=== PATIENT | male | born 1990 | race American Indian/Alaskan Native ===

== ENCOUNTER 2021-11-08 13:56 | Inpatient (IN) | payer MEDICARE ==
[2021-11-08] MEDS ORDERED: ACETAMINOPHEN 500 MG TAB PO ONE (14:32)
[2021-11-08] MEDS ORDERED: ONDANSETRON 4 MG/2 ML INJ IV ONE (14:49)
[2021-11-08] MEDS ORDERED: fentaNYL 100 MCG/2 ML INJ IV ONE (15:10)
--- NOTE | 2021-11-08 15:11 | Emergency Department Report ---
HPI - General Chief Complaint: Fever Time Seen by Provider: 11/08/21 14:29 - HPI HPI: Room 23 Patient is a 31-year-old male present with chief complaint of weakness and fever. Patient states for the past 2 to 3 days he has had a subjective fever chills and weakness. Patient also admits to nausea and vomiting. Patient denies cough but admits to shortness of breath for the past 2 to 3 days. Patient states she has been vaccinated against COVID receiving 2 Pfizer vaccines last year. Patient has a history of end-stage renal disease and states he has not received dialysis in approximately 1 week. Patient states he is visiting from out of town ED Past Medical Hx - Past Medical History Hx Hypertension: Yes Hx Congestive Heart Failure: Yes Hx Diabetes: Yes Hx Renal Disease: Yes (ESRD, HD q. MWF) - Surgical History Hx Cholecystectomy: Yes Additional Surgical History: Left foot surgery, right upper extremity fistula, left groin Vas-Cath - Family History Family history: no significant - Social History Smoking Status: Never Smoker Substance Use Type: None (Denies illicit drug use) - Medications Home Medications: Home Medications Medication Instructions Recorded Confirmed Last Taken Type Blood Sugar Diagnostic [Blood 1 each PRN #1 box 05/21/15 Unknown Rx Glucose Test Strip] Blood-Glucose Meter [Blood Glucose 1 each PRN #1 kit 05/21/15 Unknown Rx Monitor] Sulfamethoxazole/Trimethoprim 1 each PO BID #20 tablet 05/21/15 Unknown Rx [Bactrim DS TAB] lisinopriL [Zestril TAB] 20 mg PO QDAY #30 tablet 05/21/15 Unknown Rx metFORMIN [Glucophage] 500 mg PO BID #60 tablet 05/21/15 Unknown Rx ED Review of Systems ROS: Stated complaint: DIALYSIS Other details as noted in HPI Constitutional: chills, fever (Subjective) Eyes: denies: eye pain ENT: denies: throat pain Respiratory: shortness of breath. denies: cough Cardiovascular: denies: chest pain Endocrine: no symptoms reported Gastrointestinal: nausea, vomiting Genitourinary: denies: testicular pain Musculoskeletal: denies: back pain Neurological: headache Physical Exam - Physical Exam Vital Signs: Vital Signs 11/08/21 14:20 Temperature 103.1 F H Pulse Rate 126 H Respiratory 24 Rate Blood Pressure 163/81 [Left] O2 Sat by Pulse 91 Oximetry Physical Exam: GENERAL: The patient is well-developed well-nourished male lying on stretcher with shaking chills. [] HEENT: Normocephalic. Atraumatic. Extraocular motions are intact. Patient has moist mucous membranes. NECK: Supple. Trachea midline. No nuchal rigidity CHEST/LUNGS: Clear to auscultation. There is no respiratory distress noted. HEART/CARDIOVASCULAR: Regular. There is tachycardia. There is no gallop rub or murmur. ABDOMEN: Abdomen is soft, nontender. Patient has normal bowel sounds. There is no abdominal distention. SKIN: There is no rash. There is no edema. There is no diaphoresis. NEURO: The patient is awake, alert, and oriented. The patient is cooperative. The patient has no focal neurologic deficits. The patient has normal speech. GCS 15 MUSCULOSKELETAL: There is no evidence of acute injury. ED Course Vital Signs 11/08/21 14:20 Temperature 103.1 F H Pulse Rate 126 H Respiratory 24 Rate Blood Pressure 163/81 [Left] O2 Sat by Pulse 91 Oximetry - Consultations Consultation #1: 11/08/21 18:28 Nephrology paged ED Medical Decision Making - Lab Data Result diagrams: 11/08/21 14:58 11/08/21 14:58 Laboratory Tests 11/08/21 11/08/21 11/08/21 14:58 14:58 14:58 WBC 6.6 RBC 3.72 Hgb 10.7 L Hct 32.4 L MCV 87 MCH 29 MCHC 33 RDW 19.6 H Plt Count 119 L Lymph % (Auto) 13.4 Hart % (Auto) 6.1 Eos % (Auto) 0.7 Baso % (Auto) 0.9 Lymph # (Auto) 0.9 L Hart # (Auto) 0.4 Eos # (Auto) 0.0 Baso # (Auto) 0.1 Seg Neutrophils % 78.9 H Seg Neutrophils # 5.2 D-Dimer VBG pH Sodium 137 Potassium 5.1 H Chloride 91.3 L Carbon Dioxide 23 Anion Gap 28 BUN 66 H Creatinine 18.0 H Estimated GFR 4 BUN/Creatinine Ratio 4 Glucose 89 Lactic Acid 2.30 H* Calcium 7.7 L Total Bilirubin 0.50 AST 19 ALT 15 Alkaline Phosphatase 86 Total Protein 7.7 Albumin 4.7 Albumin/Globulin Ratio 1.6 11/08/21 11/08/21 11/08/21 14:58 15:59 16:28 WBC RBC Hgb Hct MCV MCH MCHC RDW Plt Count Lymph % (Auto) Hart % (Auto) Eos % (Auto) Baso % (Auto) Lymph # (Auto) Hart # (Auto) Eos # (Auto) Baso # (Auto) Seg Neutrophils % Seg Neutrophils # D-Dimer 989.75 H VBG pH 7.295 L Sodium Potassium Chloride Carbon Dioxide Anion Gap BUN Creatinine Estimated GFR BUN/Creatinine Ratio Glucose Lactic Acid 1.00 Calcium Total Bilirubin AST ALT Alkaline Phosphatase Total Protein Albumin Albumin/Globulin Ratio - EKG Data -: EKG Interpreted by Me EKG shows normal: sinus rhythm Rate: tachycardia (116 bpm) - EKG Data When compared to previous EKG there are: previous EKG unavailable Interpretation: nonspecific ST-T wave remi (T wave inversions in leads aVL, V2) - Radiology Data Radiology results: report reviewed (Chest x-ray), image reviewed (Chest x-ray) interpreted by me: Chest x-ray-no definite focal infiltrates, no pneumothorax [address] [address] XRay Report Signed Patient: KELLY VARELA MR#: [id number] : 1990 Acct:[id number] Age/Sex: 31 / M ADM Date: 11/08/21 Loc: ED Attending Dr: Ordering Physician: NISREEN TUBBS MD Date of Service: 11/08/21 Procedure(s): XR chest 1V ap Accession Number(s): [id number] cc: NISREEN TUBBS MD Fluoro Time In Minutes: CHEST 1 VIEW 11/08/2021 3:07 PM INDICATION / CLINICAL INFORMATION: Fever. COMPARISON: None available. FINDINGS: SUPPORT DEVICES: None. HEART / MEDIASTINUM: Heart is upper normal size for AP portable technique. LUNGS / PLEURA: No significant pulmonary or pleural abnormality. No pneumothorax. ADDITIONAL FINDINGS: No significant additional findings. IMPRESSION: 1. No acute findings. Signer Name: Randy Page MD Signed: 11/08/2021 3:26 PM Workstation Name: [id number] Transcribed By: DT Dictated By: Niall Page MD Electronically Authenticated By: Niall Page MD Signed Date/Time: 11/08/211525 DD/ 25 TD/TT: - Differential Diagnosis Sepsis, volume overload, Critical care attestation.: If time is entered above; I have spent that time in minutes in the direct care of this critically ill patient, excluding procedure time. ED Disposition Clinical Impression: Sepsis, Uremia, Hypoxia, ESRD needing dialysis Disposition: ADMITTED INPATIENT Is pt being admited?: Yes Does the pt Need Aspirin: No Condition: Fair Time of Disposition: 18:35 (Care transferred to hospitalist (Dr. Foley))
[2021-11-08 15:20] LABS: Basophils # (Auto) 0.1 K/mm3 (0.0-0.1); Basophils % (Auto) 0.9 % (0.0-1.8); Eosinophils % (Auto) 0.7 % (0.0-4.3); Hematocrit 32.4 % (35.5-45.6); Hemoglobin 10.7 gm/dl (11.8-15.2); Lymphocytes # (Auto) 0.9 K/mm3 (1.2-5.4); Lymphocytes % (Auto) 13.4 % (13.4-35.0); Mean Corpuscular HGB Conc 33 % (32-34); Mean Corpuscular Volume 87 fl (84-94); Monocytes # (Auto) 0.4 K/mm3 (0.0-0.8); Monocytes % (Auto) 6.1 % (0.0-7.3); Platelet Count 119 K/mm3 (140-440); Red Blood Count 3.72 M/mm3 (3.65-5.03); Red Cell Distribution Width 19.6 % (13.2-15.2)
--- NOTE | 2021-11-08 15:30 | XRay Report ---
CHEST 1 VIEW 11/08/2021 3:07 PM INDICATION / CLINICAL INFORMATION: Fever. COMPARISON: None available. FINDINGS: SUPPORT DEVICES: None. HEART / MEDIASTINUM: Heart is upper normal size for AP portable technique. LUNGS / PLEURA: No significant pulmonary or pleural abnormality. No pneumothorax. ADDITIONAL FINDINGS: No significant additional findings. IMPRESSION: 1. No acute findings. Signer Name: Randy Page MD Signed: 11/08/2021 3:26 PM Workstation Name: [id number]
[2021-11-08 15:32] LABS: Albumin 4.7 g/dL (3.9-5); Calcium 7.7 mg/dL (8.4-10.2)
[2021-11-08] MEDS ORDERED: PIPERACIL-TAZO 2.25 GM/50 ML 2.25 GM/50 ML BAG IV ONE (16:56)
--- NOTE | 2021-11-08 17:53 | Nuclear Medicine Report ---
NUCLEAR MEDICINE PERFUSION LUNG SCAN INDICATION / CLINICAL INFORMATION: Shortness of breath. TECHNIQUE: 5 mCi of Tc-99m MAA were given by IV. COMPARISON: Chest radiograph dated 11/08/21. FINDINGS: PERFUSION: No significant perfusion defects. ADDITIONAL FINDINGS: None. IMPRESSION: 1. Low probability for pulmonary embolism. Signer Name: Randy Page MD Signed: 11/08/2021 5:48 PM Workstation Name: [id number]
[2021-11-08] MEDS ORDERED: IBUPROFEN 800 MG TAB PO ONE (18:27)
--- NOTE | 2021-11-08 20:29 | History and Physical Report ---
History of Present Illness Date of examination: 11/08/21 Date of admission: 11/08/21 18:36 Chief complaint: Fever for 2 to 3 days History of present illness: 31-year-old female with history of hypertension, T2DM, and end-stage renal disease comes in for fever chills sweats 2 to 3 days duration. Associated with nausea and vomiting. No cough. Some shortness of breath present for the last 3 days. Orthopnea present. Patient was vaccinated with 2 doses of Pfizer vaccine for COVID. No dysuria. No exacerbating or relieving factors. Compliant with hemodialysis. - Past Medical History --Hypertension: Yes --Congestive Heart Failure: Yes --Diabetes: Yes --Renal Disease: Yes (ESRD, HD q. MWF) - Surgical History --Cholecystectomy: Yes --Additional Surgical History: Left foot surgery, right upper extremity fistula, left groin Vas-Cath - Family History --Family history: no significant - Social History --Smoking Status: Never Smoker --Substance Use Type: None (Denies illicit drug use) - Medications --Home Medications: Home Medications Medication Instructions Recorded Confirmed Last Taken Type Blood Sugar Diagnostic [Blood 1 each PRN #1 box 05/21/15 Unknown Rx Glucose Test Strip] Blood-Glucose Meter [Blood Glucose 1 each PRN #1 kit 05/21/15 Unknown Rx Monitor] Sulfamethoxazole/Trimethoprim 1 each PO BID #20 tablet 05/21/15 Unknown Rx [Bactrim DS TAB] lisinopriL [Zestril TAB] 20 mg PO QDAY #30 tablet 05/21/15 Unknown Rx metFORMIN [Glucophage] 500 mg PO BID #60 tablet 05/21/15 Unknown Rx Review of Systems ROS: Stated complaint: DIALYSIS Other details as noted in HPI Constitutional: chills, fever (Subjective) Eyes: denies: eye pain ENT: denies: throat pain Respiratory: shortness of breath. denies: cough Cardiovascular: denies: chest pain Endocrine: no symptoms reported Gastrointestinal: nausea, vomiting Genitourinary: denies: testicular pain Musculoskeletal: denies: back pain Neurological: headache Medications and Allergies Allergies Allergy/AdvReac Type Severity Reaction Status Date / Time No Known Allergies Allergy Unverified 05/21/15 08:18 Home Medications Medication Instructions Recorded Confirmed Last Taken Type Blood Sugar Diagnostic [Blood 1 each PRN #1 box 05/21/15 Unknown Rx Glucose Test Strip] Blood-Glucose Meter [Blood Glucose 1 each MC PRN #1 kit 05/21/15 Unknown Rx Monitor] Sulfamethoxazole/Trimethoprim 1 each PO BID #20 tablet 05/21/15 Unknown Rx [Bactrim DS TAB] lisinopriL [Zestril TAB] 20 mg PO QDAY #30 tablet 05/21/15 Unknown Rx metFORMIN [Glucophage] 500 mg PO BID #60 tablet 05/21/15 Unknown Rx Active Meds: Active Medications Acetaminophen (Acetaminophen 325 Mg Tab) 650 mg PO Q4H PRN PRN Reason: Pain MILD(1-3)/Fever >100.5/RAMIREZ Morphine Sulfate (Morphine 2 Mg/1 Ml Inj) 2 mg IV Q4H PRN PRN Reason: Pain, Moderate (4-6) Ondansetron HCl (Ondansetron 4 Mg/2 Ml Inj) 4 mg IV Q8H PRN PRN Reason: Nausea And Vomiting Sodium Chloride (Sodium Chloride 0.9% 10 Ml Flush Syringe) 10 ml IV BID ELLEN Sodium Chloride (Sodium Chloride 0.9% 10 Ml Flush Syringe) 10 ml IV PRN PRN PRN Reason: LINE FLUSH Exam - Constitutional Vitals: Temp Pulse Resp BP Pulse Ox 98.4 F 93 H 21 104/51 99 11/08/21 19:26 11/08/21 19:26 11/08/21 19:36 11/08/21 19:26 11/08/21 19:36 General appearance: Present: no acute distress, well-nourished - EENT Eyes: Present: PERRL ENT: hearing intact, clear oral mucosa - Neck Neck: Present: supple, normal ROM - Respiratory Respiratory effort: normal Respiratory: bilateral: CTA - Cardiovascular Heart rate: 78 Rhythm: regular Heart Sounds: Present: S1 & S2. Absent: rub, click - Extremities Extremities: pulses symmetrical, No edema Peripheral Pulses: within normal limits - Abdominal General gastrointestinal: Present: soft, non-tender, non-distended, normal bowel sounds Male genitourinary: Present: normal - Integumentary Integumentary: Present: clear, warm, dry - Musculoskeletal Musculoskeletal: gait normal, strength equal bilaterally - Psychiatric Psychiatric: appropriate mood/affect, intact judgment & insight - Neurologic Neurologic: CNII-XII intact, moves all extremities - Allied Health Allied health notes reviewed: nursing, case management Results - Labs CBC & Chem 7: 11/08/21 14:58 11/08/21 14:58 Labs: Laboratory Last Values WBC 6.6 K/mm3 (4.5-11.0) 11/08/21 14:58 RBC 3.72 M/mm3 (3.65-5.03) 11/08/21 14:58 Hgb 10.7 gm/dl (11.8-15.2) L 11/08/21 14:58 Hct 32.4 % (35.5-45.6) L 11/08/21 14:58 MCV 87 fl (84-94) 11/08/21 14:58 MCH 29 pg (28-32) 11/08/21 14:58 MCHC 33 % (32-34) 11/08/21 14:58 RDW 19.6 % (13.2-15.2) H 11/08/21 14:58 Plt Count 119 K/mm3 (140-440) L 11/08/21 14:58 Lymph % (Auto) 13.4 % (13.4-35.0) 11/08/21 14:58 [place] % (Auto) 6.1 % (0.0-7.3) 11/08/21 14:58 Eos % (Auto) 0.7 % (0.0-4.3) 11/08/21 14:58 Baso % (Auto) 0.9 % (0.0-1.8) 11/08/21 14:58 Lymph # (Auto) 0.9 K/mm3 (1.2-5.4) L 11/08/21 14:58 [place] # (Auto) 0.4 K/mm3 (0.0-0.8) 11/08/21 14:58 Eos # (Auto) 0.0 K/mm3 (0.0-0.4) 11/08/21 14:58 Baso # (Auto) 0.1 K/mm3 (0.0-0.1) 11/08/21 14:58 Seg Neutrophils % 78.9 % (40.0-70.0) H 11/08/21 14:58 Seg Neutrophils # 5.2 K/mm3 (1.8-7.7) 11/08/21 14:58 D-Dimer 989.75 ng/mlDDU (0-234) H 11/08/21 15:59 VBG pH 7.295 (7.320-7.420) L 11/08/21 14:58 Sodium 137 mmol/L (137-145) 11/08/21 14:58 Potassium 5.1 mmol/L (3.6-5.0) H 11/08/21 14:58 Chloride 91.3 mmol/L (98-107) L 11/08/21 14:58 Carbon Dioxide 23 mmol/L (22-30) 11/08/21 14:58 Anion Gap 28 mmol/L 11/08/21 14:58 BUN 66 mg/dL (9-20) H 11/08/21 14:58 Creatinine 18.0 mg/dL (0.8-1.3) H 11/08/21 14:58 Estimated GFR 4 ml/min 11/08/21 14:58 BUN/Creatinine Ratio 4 % 11/08/21 14:58 Glucose 89 mg/dL (75-100) 11/08/21 14:58 Lactic Acid 1.00 mmol/L (0.7-2.0) 11/08/21 16:28 Calcium 7.7 mg/dL (8.4-10.2) L 11/08/21 14:58 Total Bilirubin 0.50 mg/dL (0.1-1.2) 11/08/21 14:58 AST 19 units/L (5-40) 11/08/21 14:58 ALT 15 units/L (7-56) 11/08/21 14:58 Alkaline Phosphatase 86 units/L (35-129) 11/08/21 14:58 Total Protein 7.7 g/dL (6.3-8.2) 11/08/21 14:58 Albumin 4.7 g/dL (3.9-5) 11/08/21 14:58 Albumin/Globulin Ratio 1.6 % 11/08/21 14:58 Short CBC 11/08/21 Range/Units 14:58 WBC 6.6 (4.5-11.0) K/mm3 Hgb 10.7 L (11.8-15.2) gm/dl Hct 32.4 L (35.5-45.6) % Plt Count 119 L (140-440) K/mm3 BMP 11/08/21 14:58 Sodium 137 Potassium 5.1 H Chloride 91.3 L Carbon Dioxide 23 BUN 66 H Creatinine 18.0 H Glucose 89 Calcium 7.7 L Liver Function 11/08/21 Range/Units 14:58 Total Bilirubin 0.50 (0.1-1.2) mg/dL AST 19 (5-40) units/L ALT 15 (7-56) units/L Alkaline Phosphatase 86 (35-129) units/L Albumin 4.7 (3.9-5) g/dL - Imaging and Cardiology Chest x-ray: report reviewed (No acute findings) Imaging and Cardiology: Pulmonary perfusion scan 9 Low probability for pulmonary embolism Assessment and Plan Advance Directives: Yes (Full code) VTE prophylaxis?: Chemical Plan of care discussed with patient/family: Yes - Patient Problems (1) SIRS (systemic inflammatory response syndrome) Current Visit: Yes Status: Acute Plan to address problem: Patient has a normal white count but high D-dimers In favor of SIRS IV Rocephin and vancomycin initiated (2) Bacteremia Current Visit: Yes Status: Acute Plan to address problem: Persistent high fever of 103.1 for the last 2 to 3 days Bacteremia IV Rocephin and IV vancomycin initiated ID consult requested (3) ESRD needing dialysis Current Visit: Yes Status: Chronic Plan to address problem: Continue dialysis as per schedule Consult nephrology (4) T2DM (type 2 diabetes mellitus) Current Visit: Yes Status: Chronic Plan to address problem: Check hemoglobin A1c Coverage for now (5) Hyperkalemia Current Visit: Yes Status: Acute Plan to address problem: Mild loss treated. Repeat potassium level in the next 6 to 12 hours (6) Hypertension Current Visit: Yes Status: Chronic Qualifiers: Hypertension type: primary hypertension Qualified Code(s): I10 - Essential (primary) hypertension Plan to address problem: Continue antihypertensives (7) DVT prophylaxis Current Visit: Yes Status: Acute Plan to address problem: On heparin GI prophylaxis (8) Advance care planning Current Visit: Yes Status: Acute Plan to address problem: Disease education conducted, care plan discussed, diagnosis discussed and prognosis discussed. Patient is full code. Patient acknowledged understanding with care plan. +30 minutes.
[2021-11-08] MEDS ORDERED: ONDANSETRON 4 MG/2 ML INJ IV PRN (21:37)
[2021-11-08] MEDS ORDERED: ACETAMINOPHEN 325 MG TAB PO PRN (21:37)
[2021-11-08] MEDS ORDERED: METOCLOPRAMIDE 10 MG/2 ML INJ IV PRN (21:37)
[2021-11-08] MEDS ORDERED: SODIUM CHLORIDE 0.9% 100 ML IV PRN (22:34)
[2021-11-08] MEDS: MORPHINE 2 MG/1 ML INJ IV PRN (23:42)
[2021-11-08] MEDS: cefTRIAXone/NS 1 GM/50 ML 1 GM/50 ML BAG IV SCH (23:43)
[2021-11-09] MEDS: ONDANSETRON 4 MG/2 ML INJ IV PRN ×2 (03:54→20:30)
[2021-11-09] MEDS: MORPHINE 2 MG/1 ML INJ IV PRN ×3 (03:54→20:30)
[2021-11-09] MEDS ORDERED: VANCOMYCIN PHARMACY TO DOSE IV SCH (07:00)
[2021-11-09 07:58] LABS: Hemoglobin 9.6 gm/dl (11.8-15.2); Mean Corpuscular HGB Conc 33 % (32-34); Mean Corpuscular Volume 88 fl (84-94); Platelet Count 110 K/mm3 (140-440); Red Cell Distribution Width 19.5 % (13.2-15.2)
[2021-11-09] MEDS ORDERED: VANCOMYCIN 2,000 MG in SODIUM CHLORIDE 0.9% 500 ML 500 ML IV ONE (08:00)
--- NOTE | 2021-11-09 08:24 | Consultation ---
History of Present Illness - Reason for Consult Consult date: 11/09/21 end stage renal disease Requesting physician: ABHISHEK CANNON - History of Present Illness 82-year-old male who is not known to me with history of diabetes mellitus, hypertension and end-stage renal disease. Patient has not received dialysis in 1 week. He presents on account of fever, weakness, nausea vomiting. There is no shortness of breath over the last 2 to 3 days. He denies any cough. Patient currently dialyzes through a right upper extremity AV fistula which has been stopped 4 times. He has a left femoral permacath which is still intact. Plan was to remove the permacath after doing dialysis sticking the fistula 6 times. Past History Past Medical History: diabetes, ESRD, hypertension Past Surgical History: Other (AV fistula placement, tunneled dialysis catheter placements) Social history: smoking. denies: alcohol abuse, prescription drug abuse, IV drug use Family history: diabetes, hypertension, stroke Medications and Allergies Allergies Allergy/AdvReac Type Severity Reaction Status Date / Time No Known Allergies Allergy Unverified 05/21/15 08:18 Home Medications Medication Instructions Recorded Confirmed Last Taken Type Blood Sugar Diagnostic [Blood 1 each PRN #1 box 05/21/15 11/09/21 Unknown Rx Glucose Test Strip] Blood-Glucose Meter [Blood Glucose 1 each PRN #1 kit 05/21/15 11/09/21 Unknown Rx Monitor] Sulfamethoxazole/Trimethoprim 1 each PO BID #20 tablet 05/21/15 11/09/21 Unknown Rx [Bactrim DS TAB] lisinopriL [Zestril TAB] 20 mg PO QDAY #30 tablet 05/21/15 11/09/21 Unknown Rx metFORMIN [Glucophage] 500 mg PO BID #60 tablet 05/21/15 11/09/21 Unknown Rx Active Meds: Active Medications Acetaminophen (Acetaminophen 325 Mg Tab) 650 mg PO Q4H PRN PRN Reason: Pain MILD(1-3)/Fever >100.5/RAMIREZ Ceftriaxone Sodium (Rocephin/Ns 1 Gm/50 Ml) 1 gm in 50 mls @ 100 mls/hr IV Q24HR ELLEN; Protocol Last Infusion: 11/09/21 03:39 Dose: Infused Sodium Chloride (Nacl 0.9%) 100 mls @ 999 mls/hr IV SHELBI PRN PRN Reason: Hypotension Vancomycin HCl 2,000 mg/ (Sodium Chloride) 540 mls @ 250 mls/hr IV ONCE ONE Stop: 11/09/21 10:09 Insulin Human Lispro (Insulin Lispro 100 Unit/Ml) 0 unit SUB-Q ACHS ELLEN; Protocol Metoclopramide HCl (Metoclopramide 10 Mg/2 Ml Inj) 5 mg IV Q6H PRN PRN Reason: Nausea And Vomiting Morphine Sulfate (Morphine 2 Mg/1 Ml Inj) 2 mg IV Q4H PRN PRN Reason: Pain, Moderate (4-6) Last Admin: 11/09/21 03:54 Dose: 2 mg Ondansetron HCl (Ondansetron 4 Mg/2 Ml Inj) 4 mg IV Q8H PRN PRN Reason: Nausea And Vomiting Last Admin: 11/09/21 03:54 Dose: 4 mg Sodium Chloride (Sodium Chloride 0.9% 10 Ml Flush Syringe) 10 ml IV BID ELLEN Last Admin: 11/08/21 23:46 Dose: 10 ml Sodium Chloride (Sodium Chloride 0.9% 10 Ml Flush Syringe) 10 ml IV PRN PRN PRN Reason: LINE FLUSH Review of Systems All systems: negative (As noted in history of present illness) Exam - Vital Signs Vital signs: Vital Signs BP 113/64 11/08/21 12:23 - Physical Exam Narrative exam: Young -[place] male lying in bed in no acute distress HEENT: NCAT, pink conjunctiva, anicteric sclera Neck: Supple, no venous distention CVS: S1S2 RRR with no murmur, rub or gallop Chest: Clear to auscultation but breath sounds diminished in lower zones Abdomen: Protuberant, soft, nontender, no organomegaly, bowel sounds are present Extremities: No edema, dressings both feet Right upper extremity AV fistula Skin warm and dry Genitourinary deferred Neuro: Awake, alert no focal deficits Results - Lab Results 11/10/21 07:43 11/10/21 07:43 Most recent lab results Calcium 7.7 mg/dL (8.4-10.2) L 11/08/21 14:58 Assessment and Plan - Patient Problems (1) Type 2 diabetes mellitus with diabetic chronic kidney disease Current Visit: Yes Status: Acute Plan to address problem: Blood sugar management by primary attending. (2) Anemia in end-stage renal disease Current Visit: Yes Status: Acute Plan to address problem: Give erythropoietin on dialysis. Follow-up hemoglobin (3) Hypertensive chronic kidney disease with stage 5 chronic kidney disease or end stage renal disease Current Visit: Yes Status: Acute Plan to address problem: Follow-up blood pressure on current medications (4) Bacteremia Current Visit: Yes Status: Acute Plan to address problem: Follow-up cultures. Continue empiric antibiotics. Will need permacath removed if patient has bacteremia. Hopefully AV fistula is mature and can be used (5) Hyperkalemia Current Visit: Yes Status: Acute Plan to address problem: Dialyze on a low potassium bath and follow-up potassium. (6) SIRS (systemic inflammatory response syndrome) Current Visit: Yes Status: Acute Plan to address problem: Cultures obtained. Continue empiric antibiotics and follow-up culture and sensitivity (7) ESRD needing dialysis Current Visit: Yes Status: Chronic Plan to address problem: Hemodialysis today. Reevaluate the need for dialysis tomorrow
--- NOTE | 2021-11-09 08:25 | Progress Note ---
Assessment and Plan Assessment and plan: History of present illness: 31-year-old female with history of hypertension, T2DM, and end-stage renal disease comes in for fever chills sweats 2 to 3 days duration. Associated with nausea and vomiting. No cough. Some shortness of breath present for the last 3 days. Orthopnea present. Patient was vaccinated with 2 doses of Pfizer vaccine for COVID. No dysuria. No exacerbating or relieving factors. Compliant with hemodialysis. Hospital Course: 11/09: Patient appears lethargic. Agree with MRI bilateral feet ordered by ID to r/o infectious source (osteo). abx changes noted. Coronavirus pcr negative. Assessment and Plan: #Possible Sepsis POA #BL foot wounds - unclear source (potentially feet), fevers, chills, N/V - LA: 2.3, tachcardic, febrile - CXR: negative for obvious PNA - covid pcr negative. - blood cultures x 2. - empiric abx: IV cefepime and vancomycin - MRI of bilateral feet. - ID consultation #ESRD needing hemodialysis #Hyperkalemia #Metabolic Acidosis #Anemia of CKD - nephrology consultation for HD - trend serial bmp #Type 2 Diabetes with Hyperglycemia - hemoglobin A1c: Pending - home regimen: Unknown - current regimen: Moderate SSI - blood glucose goal 140-180 while inpatient - continue to monitor #Essential hypertension - hold home lisinopril due to hyperkalemia - started on norvasc 10 mg po daily #Advance care planning Disease education conducted, care plan discussed, diagnoses discussed, prognosis discussed, patient is full code, patient acknowledges understanding and agree with care plan, +30 minutes. History Interval history: Seen and evaluated bedside. Patient complaining of severe muscle aches and malaise. Did not appear to be in distress otherwise. Bilateral foot wounds noted with overlying dressing. Patient states that he follows with podiatry outpatient and has been doing so for approximately 1 month now. He denies any antibiotic therapy prior to admission Hospitalist Physical - Physical exam Narrative exam: Physical Exam: VITAL SIGNS: Reviewed. GENERAL: The patient appears normally developed, Vital signs as documented. HEAD: No signs of head trauma. EYES: Pupils are equal. Extraocular motions intact. EARS: Hearing grossly intact. MOUTH: Oropharynx is normal. NECK: No adenopathy, no JVD. CHEST: Chest with clear breath sounds bilaterally. No wheezes, rales, or rhonchi. CARDIAC: Regular rate and rhythm. S1 and S2, without murmurs, gallops, or rubs. VASCULAR: No Edema. Peripheral pulses normal and equal in all extremities. ABDOMEN: Soft, non tender and non distended. No rebound or guarding, and no masses palpated. Bowel Sounds normal. MUSCULOSKELETAL: Good range of motion of all major joints. Extremities without clubbing, cyanosis or edema. NEUROLOGIC EXAM: Alert and oriented x 4. no focal sensory or strength deficits. PSYCHIATRIC: Mood normal. SKIN: detail exam as documented in skin assessment - Constitutional Vitals: Temp Pulse Resp BP Pulse Ox 100.3 F H 74 11 L 161/114 99 11/09/21 05:06 11/09/21 05:40 11/09/21 05:40 11/09/21 05:40 11/09/21 07:47 General appearance: Present: no acute distress, well-nourished Results - Labs CBC & Chem 7: 11/09/21 07:30 11/09/21 07:30 Labs: Laboratory Last Values WBC 7.4 K/mm3 (4.5-11.0) 11/09/21 07:30 RBC 3.30 M/mm3 (3.65-5.03) L 11/09/21 07:30 Hgb 9.6 gm/dl (11.8-15.2) L 11/09/21 07:30 Hct 29.0 % (35.5-45.6) L 11/09/21 07:30 MCV 88 fl (84-94) 11/09/21 07:30 MCH 29 pg (28-32) 11/09/21 07:30 MCHC 33 % (32-34) 11/09/21 07:30 RDW 19.5 % (13.2-15.2) H 11/09/21 07:30 Plt Count 110 K/mm3 (140-440) L 11/09/21 07:30 Lymph % (Auto) 13.4 % (13.4-35.0) 11/08/21 14:58 Bea[place]gard % (Auto) 6.1 % (0.0-7.3) 11/08/21 14:58 Eos % (Auto) 0.7 % (0.0-4.3) 11/08/21 14:58 Baso % (Auto) 0.9 % (0.0-1.8) 11/08/21 14:58 Lymph # (Auto) 0.9 K/mm3 (1.2-5.4) L 11/08/21 14:58 Bea[place]gard # (Auto) 0.4 K/mm3 (0.0-0.8) 11/08/21 14:58 Eos # (Auto) 0.0 K/mm3 (0.0-0.4) 11/08/21 14:58 Baso # (Auto) 0.1 K/mm3 (0.0-0.1) 11/08/21 14:58 Seg Neutrophils % 78.9 % (40.0-70.0) H 11/08/21 14:58 Seg Neutrophils # 5.2 K/mm3 (1.8-7.7) 11/08/21 14:58 D-Dimer 989.75 ng/mlDDU (0-234) H 11/08/21 15:59 VBG pH 7.295 (7.320-7.420) L 11/08/21 14:58 Sodium 137 mmol/L (137-145) 11/08/21 14:58 Potassium 5.1 mmol/L (3.6-5.0) H 11/08/21 14:58 Chloride 91.3 mmol/L (98-107) L 11/08/21 14:58 Carbon Dioxide 23 mmol/L (22-30) 11/08/21 14:58 Anion Gap 28 mmol/L 11/08/21 14:58 BUN 66 mg/dL (9-20) H 11/08/21 14:58 Creatinine 18.0 mg/dL (0.8-1.3) H 11/08/21 14:58 Estimated GFR 4 ml/min 11/08/21 14:58 BUN/Creatinine Ratio 4 % 11/08/21 14:58 Glucose 89 mg/dL (75-100) 11/08/21 14:58 POC Glucose 91 mg/dL (70-105) 11/08/21 21:46 Lactic Acid 0.80 mmol/L (0.7-2.0) 11/09/21 07:30 Calcium 7.7 mg/dL (8.4-10.2) L 11/08/21 14:58 Total Bilirubin 0.50 mg/dL (0.1-1.2) 11/08/21 14:58 AST 19 units/L (5-40) 11/08/21 14:58 ALT 15 units/L (7-56) 11/08/21 14:58 Alkaline Phosphatase 86 units/L (35-129) 11/08/21 14:58 Total Protein 7.7 g/dL (6.3-8.2) 11/08/21 14:58 Albumin 4.7 g/dL (3.9-5) 11/08/21 14:58 Albumin/Globulin Ratio 1.6 % 11/08/21 14:58 Microbiology: Microbiology 11/08/21 15:28 Peripheral/Venous Blood Culture - Preliminary Culture in Progress 11/08/21 15:28 Peripheral/Venous Blood Culture - Preliminary Culture in Progress Vargas/IV: Voiding Method Urinal Active Medications - Current Medications Current Medications: Generic Name Dose Route Start Last Admin Trade Name Freq PRN Reason Stop Dose Admin Acetaminophen 650 mg 11/08/21 18:36 Acetaminophen 325 Mg Tab PO Q4H PRN Pain MILD(1-3)/Fever >100.5/RAMIREZ Ceftriaxone Sodium 1 gm in 50 mls @ 100 mls/hr 11/08/21 23:00 11/09/21 03:39 Rocephin/Ns 1 Gm/50 Ml IV Infused Q24HR [facility] Infusion Protocol Sodium Chloride 100 mls @ 999 mls/hr 11/08/21 22:34 Nacl 0.9% IV SHELBI PRN Hypotension Vancomycin HCl 2,000 mg/ 540 mls @ 250 mls/hr 11/09/21 08:00 Sodium Chloride IV 11/09/21 10:09 ONCE ONE Insulin Human Lispro 0 unit 11/09/21 07:30 Insulin Lispro 100 Unit/Ml SUB-Q ACHS [facility] Protocol Metoclopramide HCl 5 mg 11/08/21 21:37 Metoclopramide 10 Mg/2 Ml Inj IV Q6H PRN Nausea And Vomiting Morphine Sulfate 2 mg 11/08/21 18:36 11/09/21 03:54 Morphine 2 Mg/1 Ml Inj IV 2 mg Q4H PRN Administration Pain, Moderate (4-6) Ondansetron HCl 4 mg 11/08/21 18:36 11/09/21 03:54 Ondansetron 4 Mg/2 Ml Inj IV 4 mg Q8H PRN Administration Nausea And Vomiting Sodium Chloride 10 ml 11/08/21 22:00 11/08/21 23:46 Sodium Chloride 0.9% 10 Ml Flush Syringe IV 10 ml BID ELLEN Administration Sodium Chloride 10 ml 11/08/21 18:36 Sodium Chloride 0.9% 10 Ml Flush Syringe IV PRN PRN LINE FLUSH
[2021-11-09 08:28] LABS: Calcium 6.9 mg/dL (8.4-10.2)
[2021-11-09] MEDS ORDERED: hydrALAZINE 20 MG/1 ML INJ IV PRN (08:32)
--- NOTE | 2021-11-09 09:31 | Electrocardiograph Report ---
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
[2021-11-09] MEDS: INSULIN LISPRO 100 UNIT/ML SUB-Q SCH ×4 (09:33→22:41)
[2021-11-09 09:37] LABS: Anisocytosis 1+; Basophils % (Manual) 0 % (0.0-1.8); Eosinophils % (Manual) 0 % (0.0-4.3); Large Platelets Rare; Platelet Estimate Consistent w Auto; Total Cells Counted 100
[2021-11-09] MEDS: amLODIPine 10 MG TAB PO SCH (09:55)
[2021-11-09] MEDS: cefTRIAXone/NS 1 GM/50 ML 1 GM/50 ML BAG IV SCH (09:55)
--- NOTE | 2021-11-09 10:13 | Consultation ---
History of Present Illness - Reason for Consult Consult date: 11/09/21 fever Requesting physician: GRICELDA LÓPEZ - History of Present Illness The patient is a 31-year-old male with diabetes mellitus type 2, hypertension, ESRD on HD was admitted with fever and chills going on for 2 to 3 days. Also having some nausea and vomiting. Upon evaluation in the ED, T-max of 103.1 F. Labs showed normal WBC, platelets 119, D-dimer 989, creatinine was high at 18.0, mild lactate elevation at 2.3. Chest x-ray did not reveal any evidence of pneumonia. ID was consulted due to fever. Review of Systems: General: fever HEENT: no new visual disturbance Respiratory: No cough, sputum, hemoptysis or shortness of breath Cardiovascular: No chest pain, syncope Gastrointestinal: No nausea, vomiting or diarrhea Genitourinary: No dysuria or hematuria Musculoskeletal: No new or worsening neck pain or back pain Neurologic: No headaches, seizures Hematologic: No easy bruising or bleeding Endocrine: No night sweats or acute weight loss Skin: negative for rash, jaundice Psychiatric: No suicidal or homicidal ideation Past History Past Medical History: diabetes, ESRD, hypertension Past Surgical History: Other (AV fistula placement, tunneled dialysis catheter placements) Social history: smoking. denies: alcohol abuse, prescription drug abuse, IV drug use Family history: diabetes, hypertension, stroke Medications and Allergies Allergies Allergy/AdvReac Type Severity Reaction Status Date / Time No Known Allergies Allergy Unverified 05/21/15 08:18 Home Medications Medication Instructions Recorded Confirmed Last Taken Type Blood Sugar Diagnostic [Blood 1 each PRN #1 box 05/21/15 Unknown Rx Glucose Test Strip] Blood-Glucose Meter [Blood Glucose 1 each PRN #1 kit 05/21/15 Unknown Rx Monitor] Sulfamethoxazole/Trimethoprim 1 each PO BID #20 tablet 05/21/15 Unknown Rx [Bactrim DS TAB] lisinopriL [Zestril TAB] 20 mg PO QDAY #30 tablet 05/21/15 Unknown Rx metFORMIN [Glucophage] 500 mg PO BID #60 tablet 05/21/15 Unknown Rx Active Meds: Active Medications Acetaminophen (Acetaminophen 325 Mg Tab) 650 mg PO Q4H PRN PRN Reason: Pain MILD(1-3)/Fever >100.5/RAMIREZ Amlodipine Besylate (Amlodipine 10 Mg Tab) 10 mg PO QDAY [facility] Last Admin: 11/09/21 09:55 Dose: Not Given Hydralazine HCl (Hydralazine 20 Mg/1 Ml Inj) 10 mg IV Q4H PRN PRN Reason: sbp> 160 Sodium Chloride (Nacl 0.9%) 100 mls @ 999 mls/hr IV SHELBI PRN PRN Reason: Hypotension Insulin Human Lispro (Insulin Lispro 100 Unit/Ml) 0 unit SUB-Q ACHS [facility]; Protocol Last Admin: 11/09/21 09:33 Dose: Not Given Metoclopramide HCl (Metoclopramide 10 Mg/2 Ml Inj) 5 mg IV Q6H PRN PRN Reason: Nausea And Vomiting Morphine Sulfate (Morphine 2 Mg/1 Ml Inj) 2 mg IV Q4H PRN PRN Reason: Pain, Moderate (4-6) Last Admin: 11/09/21 03:54 Dose: 2 mg Ondansetron HCl (Ondansetron 4 Mg/2 Ml Inj) 4 mg IV Q8H PRN PRN Reason: Nausea And Vomiting Last Admin: 11/09/21 03:54 Dose: 4 mg Sodium Chloride (Sodium Chloride 0.9% 10 Ml Flush Syringe) 10 ml IV BID [facility] Last Admin: 11/09/21 09:38 Dose: 10 ml Sodium Chloride (Sodium Chloride 0.9% 10 Ml Flush Syringe) 10 ml IV PRN PRN PRN Reason: LINE FLUSH Physical Examination - Physical Exam Narrative exam: Physical Exam: Constitutional: Alert, cooperative. No acute distress Head, Ears, Nose: Normocephalic, atraumatic. External ears, nose normal Eyes: Conjunctivae/corneas clear. No icterus. No ptosis. Neck: Supple, no meningeal signs Cardiovascular: S1, S2 + Respiratory: Good air entry, clear to auscultation bilaterally GI: Soft, non-tender; bowel sounds normal. No peritoneal signs Musculoskeletal: b/l feet in dressings. L groin HD cath + Skin: No rash or abscess Hem/Lymphatic: No palpable cervical or supraclavicular nodes. No lymphangitis Psych: Mood ok. Affect normal Neurological: Awake, alert, oriented. No gross abnormality - Constitutional Vitals: Vital Signs Temp Pulse Resp BP Pulse Ox 97.6 F 104 H 20 97/42 94 11/09/21 09:54 11/09/21 09:54 11/09/21 09:54 11/09/21 09:54 11/09/21 09:54 Temperature -Last 24 Hours Temperature 97.6 F Temperature 100.3 F Temperature 98.2 F Temperature 98.4 F Temperature 101.0 F Temperature 103.1 F Results - Labs CBC & Chem 7: 11/09/21 07:30 11/09/21 07:30 Labs: Abnormal lab results 11/08/21 11/08/21 11/08/21 Range/Units 14:58 14:58 14:58 RBC (3.65-5.03) M/mm3 Hgb 10.7 L (11.8-15.2) gm/dl Hct 32.4 L (35.5-45.6) % RDW 19.6 H (13.2-15.2) % Plt Count 119 L (140-440) K/mm3 Lymph # (Auto) 0.9 L (1.2-5.4) K/mm3 Seg Neutrophils % 78.9 H (40.0-70.0) % Seg Neuts % (Manual) (40.0-70.0) % Lymphocytes % (Manual) (13.4-35.0) % Monocytes % (Manual) (0.0-7.3) % Lymphocytes # (Manual) (1.2-5.4) K/mm3 D-Dimer (0-234) ng/mlDDU VBG pH (7.320-7.420) Sodium (137-145) mmol/L Potassium 5.1 H (3.6-5.0) mmol/L Chloride 91.3 L (98-107) mmol/L BUN 66 H (9-20) mg/dL Creatinine 18.0 H (0.8-1.3) mg/dL Lactic Acid 2.30 H* (0.7-2.0) mmol/L Calcium 7.7 L (8.4-10.2) mg/dL 11/08/21 11/08/21 11/09/21 Range/Units 14:58 15:59 07:30 RBC 3.30 L (3.65-5.03) M/mm3 Hgb 9.6 L (11.8-15.2) gm/dl Hct 29.0 L (35.5-45.6) % RDW 19.5 H (13.2-15.2) % Plt Count 110 L (140-440) K/mm3 Lymph # (Auto) (1.2-5.4) K/mm3 Seg Neutrophils % (40.0-70.0) % Seg Neuts % (Manual) 80.0 H (40.0-70.0) % Lymphocytes % (Manual) 11.0 L (13.4-35.0) % Monocytes % (Manual) 9.0 H (0.0-7.3) % Lymphocytes # (Manual) 0.8 L (1.2-5.4) K/mm3 D-Dimer 989.75 H (0-234) ng/mlDDU VBG pH 7.295 L (7.320-7.420) Sodium (137-145) mmol/L Potassium (3.6-5.0) mmol/L Chloride (98-107) mmol/L BUN (9-20) mg/dL Creatinine (0.8-1.3) mg/dL Lactic Acid (0.7-2.0) mmol/L Calcium (8.4-10.2) mg/dL 11/09/21 Range/Units 07:30 RBC (3.65-5.03) M/mm3 Hgb (11.8-15.2) gm/dl Hct (35.5-45.6) % RDW (13.2-15.2) % Plt Count (140-440) K/mm3 Lymph # (Auto) (1.2-5.4) K/mm3 Seg Neutrophils % (40.0-70.0) % Seg Neuts % (Manual) (40.0-70.0) % Lymphocytes % (Manual) (13.4-35.0) % Monocytes % (Manual) (0.0-7.3) % Lymphocytes # (Manual) (1.2-5.4) K/mm3 D-Dimer (0-234) ng/mlDDU VBG pH (7.320-7.420) Sodium 135 L (137-145) mmol/L Potassium 6.5 H* D (3.6-5.0) mmol/L Chloride 91.4 L (98-107) mmol/L BUN 74 H (9-20) mg/dL Creatinine 19.8 H (0.8-1.3) mg/dL Lactic Acid (0.7-2.0) mmol/L Calcium 6.9 L (8.4-10.2) mg/dL - Imaging and Cardiology Chest x-ray: report reviewed, image reviewed (no pneumonia) Assessment and Plan Cultures: 11/08/2021 blood culture: In process A/P: 31-year-old male with diabetes mellitus type 2, hypertension, ESRD on HD was admitted with fever and chills going on for 2 to 3 days: #Fever, sepsis: Could be from infected HD catheter in left femoral region versus bilateral feet wounds present for >1 month, does follow outpt with podiatry. #ESRD on HD: Renally adjust antibiotics. #Diabetes mellitus type 2, uncontrolled #Hypertension #Acute thrombocytopenia Recs: -Empiric renally adjusted cefepime, vancomycin -Follow-up blood cultures -MRI of bilateral feet ordered -Wound care consult Dick Pang MD, FACP, [facility] O: [phone] F: [phone] C: [phone]
[2021-11-09 10:40] LABS: Hepatitis B Surface Antigen Non-Reactive (Negative); Hepatitis C Virus Antibody Non-Reactive (NonReactive)
[2021-11-09] MEDS: CEFEPIME/NS 1 GM/100 ML 1 GM/100 ML BAG IV SCH (18:49)
[2021-11-09] MEDS: ACETAMINOPHEN 325 MG TAB PO PRN (22:34)
[2021-11-10] MEDS: MORPHINE 2 MG/1 ML INJ IV PRN ×2 (01:34→05:16)
[2021-11-10] MEDS ORDERED: NALOXONE 0.4 MG/1 ML INJ IV NR (07:25)
[2021-11-10] MEDS ORDERED: NALOXONE 0.4 MG/1 ML INJ IV ONE (07:34)
[2021-11-10 07:42] LABS: ABG Base Excess -2.9 mmol/L (-2.0-3.0); ABG HCO3 23.7 mmol/L (20.0-26.0); ABG Methemoglobin 0.2 % (0.0-1.5); ABG Oxygen Saturation 97.9 % (95.0-99.0); ABG PCO2 49.4 mm Hg; ABG PH 7.299 pH Units (7.350-7.450); ABG PO2 123.6 mm Hg (80.0-90.0)
[2021-11-10 07:58] LABS: Basophils % (Auto) 0.3 % (0.0-1.8); Eosinophils % (Auto) 0.4 % (0.0-4.3); Hematocrit 31.6 % (35.5-45.6); Lymphocytes # (Auto) 0.4 K/mm3 (1.2-5.4); Lymphocytes % (Auto) 6.4 % (13.4-35.0); Mean Corpuscular HGB Conc 32 % (32-34); Mean Corpuscular Volume 89 fl (84-94); Monocytes # (Auto) 0.6 K/mm3 (0.0-0.8); Platelet Count 137 K/mm3 (140-440); Red Blood Count 3.56 M/mm3 (3.65-5.03)
[2021-11-10 08:07] LABS: Red Cell Distribution Width 20.2 % (13.2-15.2)
[2021-11-10 08:13] LABS: Albumin 4.5 g/dL (3.9-5); C-Reactive Protein 16.1 mg/dL (0.00-1.30); Calcium 7.6 mg/dL (8.4-10.2)
--- NOTE | 2021-11-10 08:14 | XRay Report ---
CHEST 1 VIEW 11/10/2021 8:06 AM INDICATION / CLINICAL INFORMATION: respiratory distress. COMPARISON: 11/08/2021 FINDINGS: SUPPORT DEVICES: None. HEART / MEDIASTINUM: No significant abnormality. LUNGS / PLEURA: There is poor inspiration. The lungs remain grossly clear. No pneumothorax. ADDITIONAL FINDINGS: No significant additional findings. IMPRESSION: 1. Grossly negative expiratory AP chest Signer Name: Travis June Jr, MD Signed: 11/10/2021 8:09 AM Workstation Name: [id number]
--- NOTE | 2021-11-10 08:34 | Progress Note ---
Assessment and Plan Assessment and plan: History of present illness: 31-year-old female with history of hypertension, T2DM, and end-stage renal disease comes in for fever chills sweats 2 to 3 days duration. Associated with nausea and vomiting. No cough. Some shortness of breath present for the last 3 days. Orthopnea present. Patient was vaccinated with 2 doses of 117go vaccine for COVID. No dysuria. No exacerbating or relieving factors. Compliant with hemodialysis. Hospital Course: 11/09: Patient appears lethargic. Agree with MRI bilateral feet ordered by ID to r/o infectious source (osteo). abx changes noted. Coronavirus pcr negative. 11/10: Code met due to lack of responsiveness. Admin narcan with good response. D/c morphine from [facility]. AVOID morphine, dilaudid etc at this time. Report of pain yesterday in right eye. Patient had recent surgery 3 weeks ago for retinal detachment repair. Ordered prednisolone OU drops. Awaiting completion of MR of BL LE. Will await nephrology recommendations regarding tunneled HD catheter in groin and if this can be d/c. Assessment and Plan: #Possible Sepsis POA #BL foot wounds - unclear source (potentially feet vs HD catheter), fevers, chills, N/V - LA: 2.3, tachcardic, febrile - CXR: negative for obvious PNA - covid pcr negative. - blood cultures drawn - empiric abx: IV cefepime and vancomycin - MRI of bilateral feet. - ID consultation #ESRD needing hemodialysis #Hyperkalemia #Metabolic Acidosis #Anemia of CKD - patient has right arm av fistula and tunneled HD catheter in groin. was awaiting av fistula maturation. - nephrology consultation for HD - trend serial bmp #Type 2 Diabetes with Hyperglycemia - hemoglobin A1c: Pending - home regimen: Unknown - current regimen: Moderate SSI - blood glucose goal 140-180 while inpatient - continue to monitor #Essential hypertension - hold home lisinopril due to hyperkalemia - started on norvasc 10 mg po daily #Recent surgery for Retinal Detachment s/p repair - surgery approximately 3 weeks prior to admission - ordered prednisolone OU drops - only apap for pain control at this time. #Acute metabolic encephalopathy (resolved) - transient from narcotic pain medication administration - avoid opoid narcotics at this time. #Advance care planning Disease education conducted, care plan discussed, diagnoses discussed, prognosis discussed, patient is full code, patient acknowledges understanding and agree with care plan, +30 minutes. History Interval history: code met this AM. Was confused and altered. patient had been given a total of 6 mg of morphine overnight for eye pain/headache. Given narcan x 1 with good response. patient more alert on subsequent encounter. No additional complaints. Eye pain/headache symptoms better. Denies fevers, chills, N/V on my encounter. Hospitalist Physical - Physical exam Narrative exam: Physical Exam: VITAL SIGNS: Reviewed. GENERAL: The patient appears normally developed, Vital signs as documented. HEAD: No signs of head trauma. EYES: Pupils are equal. Extraocular motions intact. EARS: Hearing grossly intact. MOUTH: Oropharynx is normal. NECK: No adenopathy, no JVD. CHEST: Chest with clear breath sounds bilaterally. No wheezes, rales, or rhonchi. CARDIAC: Regular rate and rhythm. S1 and S2, without murmurs, gallops, or rubs. VASCULAR: No Edema. Peripheral pulses normal and equal in all extremities. ABDOMEN: Soft, non tender and non distended. No rebound or guarding, and no masses palpated. Bowel Sounds normal. MUSCULOSKELETAL: Good range of motion of all major joints. Extremities without clubbing, cyanosis or edema. NEUROLOGIC EXAM: Alert and oriented x 4. no focal sensory or strength deficits. PSYCHIATRIC: Mood normal. SKIN: detail exam as documented in skin assessment - Constitutional Vitals: Temp Pulse Resp BP Pulse Ox 98.2 F 116 H 20 140/67 91 11/10/21 05:20 11/10/21 05:20 11/10/21 05:20 11/10/21 05:20 11/10/21 05:20 General appearance: Present: no acute distress, well-nourished Results - Labs CBC & Chem 7: 11/10/21 07:43 11/10/21 07:43 Labs: Laboratory Last Values WBC 6.9 K/mm3 (4.5-11.0) 11/10/21 07:43 RBC 3.56 M/mm3 (3.65-5.03) L 11/10/21 07:43 Hgb 10.0 gm/dl (11.8-15.2) L 11/10/21 07:43 Hct 31.6 % (35.5-45.6) L 11/10/21 07:43 MCV 89 fl (84-94) 11/10/21 07:43 MCH 28 pg (28-32) 11/10/21 07:43 MCHC 32 % (32-34) 11/10/21 07:43 RDW 20.2 % (13.2-15.2) H 11/10/21 07:43 Plt Count 137 K/mm3 (140-440) L 11/10/21 07:43 Lymph % (Auto) 6.4 % (13.4-35.0) L 11/10/21 07:43 Becker % (Auto) 8.0 % (0.0-7.3) H 11/10/21 07:43 Eos % (Auto) 0.4 % (0.0-4.3) 11/10/21 07:43 Baso % (Auto) 0.3 % (0.0-1.8) 11/10/21 07:43 Lymph # (Auto) 0.4 K/mm3 (1.2-5.4) L 11/10/21 07:43 Becker # (Auto) 0.6 K/mm3 (0.0-0.8) 11/10/21 07:43 Eos # (Auto) 0.0 K/mm3 (0.0-0.4) 11/10/21 07:43 Baso # (Auto) 0.0 K/mm3 (0.0-0.1) 11/10/21 07:43 Add Manual Diff Complete 11/09/21 07:30 Total Counted 100 11/09/21 07:30 Seg Neutrophils % 84.9 % (40.0-70.0) H 11/10/21 07:43 Seg Neuts % (Manual) 80.0 % (40.0-70.0) H 11/09/21 07:30 Band Neutrophils % 0 % 11/09/21 07:30 Lymphocytes % (Manual) 11.0 % (13.4-35.0) L 11/09/21 07:30 Reactive Lymphs % (Man) 0 % 11/09/21 07:30 Monocytes % (Manual) 9.0 % (0.0-7.3) H 11/09/21 07:30 Eosinophils % (Manual) 0 % (0.0-4.3) 11/09/21 07:30 Basophils % (Manual) 0 % (0.0-1.8) 11/09/21 07:30 Metamyelocytes % 0 % 11/09/21 07:30 Myelocytes % 0 % 11/09/21 07:30 Promyelocytes % 0 % 11/09/21 07:30 Blast Cells % 0 % 11/09/21 07:30 Nucleated RBC % Not Reportable 11/09/21 07:30 Seg Neutrophils # 5.9 K/mm3 (1.8-7.7) 11/10/21 07:43 Seg Neutrophils # Man 5.9 K/mm3 (1.8-7.7) 11/09/21 07:30 Band Neutrophils # 0.0 K/mm3 11/09/21 07:30 Lymphocytes # (Manual) 0.8 K/mm3 (1.2-5.4) L 11/09/21 07:30 Abs React Lymphs (Man) 0.0 K/mm3 11/09/21 07:30 Monocytes # (Manual) 0.7 K/mm3 (0.0-0.8) 11/09/21 07:30 Eosinophils # (Manual) 0.0 K/mm3 (0.0-0.4) 11/09/21 07:30 Basophils # (Manual) 0.0 K/mm3 (0.0-0.1) 11/09/21 07:30 Metamyelocytes # 0.0 K/mm3 11/09/21 07:30 Myelocytes # 0.0 K/mm3 11/09/21 07:30 Promyelocytes # 0.0 K/mm3 11/09/21 07:30 Blast Cells # 0.0 K/mm3 11/09/21 07:30 WBC Morphology Not Reportable 11/09/21 07:30 Hypersegmented Neuts Not Reportable 11/09/21 07:30 Hyposegmented Neuts Not Reportable 11/09/21 07:30 Hypogranular Neuts Not Reportable 11/09/21 07:30 Smudge Cells Not Reportable 11/09/21 07:30 Toxic Granulation Not Reportable 11/09/21 07:30 Toxic Vacuolation Not Reportable 11/09/21 07:30 Dohle Bodies Not Reportable 11/09/21 07:30 Pelger-Huet Anomaly Not Reportable 11/09/21 07:30 Pilar Rods Not Reportable 11/09/21 07:30 Platelet Estimate Consistent w auto 11/09/21 07:30 Clumped Platelets Not Reportable 11/09/21 07:30 Plt Clumps, EDTA Not Reportable 11/09/21 07:30 Large Platelets Rare 11/09/21 07:30 Giant Platelets Not Reportable 11/09/21 07:30 Platelet Satelliting Not Reportable 11/09/21 07:30 Plt Morphology Comment Not Reportable 11/09/21 07:30 RBC Morphology Not Reportable 11/09/21 07:30 Dimorphic RBCs Not Reportable 11/09/21 07:30 Polychromasia Not Reportable 11/09/21 07:30 Hypochromasia Not Reportable 11/09/21 07:30 Poikilocytosis Not Reportable 11/09/21 07:30 Anisocytosis 1+ 11/09/21 07:30 Microcytosis Not Reportable 11/09/21 07:30 Macrocytosis Not Reportable 11/09/21 07:30 Spherocytes Not Reportable 11/09/21 07:30 Pappenheimer Bodies Not Reportable 11/09/21 07:30 Sickle Cells Not Reportable 11/09/21 07:30 Target Cells Not Reportable 11/09/21 07:30 Tear Drop Cells Not Reportable 11/09/21 07:30 Ovalocytes Not Reportable 11/09/21 07:30 Helmet Cells Not Reportable 11/09/21 07:30 More[place] Bodies Not Reportable 11/09/21 07:30 [place] Rings Not Reportable 11/09/21 07:30 Claudia Cells Not Reportable 11/09/21 07:30 Bite Cells Not Reportable 11/09/21 07:30 Crenated Cell Not Reportable 11/09/21 07:30 Elliptocytes Not Reportable 11/09/21 07:30 Acanthocytes (Spur) Not Reportable 11/09/21 07:30 Rouleaux Not Reportable 11/09/21 07:30 Hemoglobin C Crystals Not Reportable 11/09/21 07:30 Schistocytes Not Reportable 11/09/21 07:30 Malaria parasites Not Reportable 11/09/21 07:30 Eduardo Bodies Not Reportable 11/09/21 07:30 Hem Pathologist Commnt No 11/09/21 07:30 D-Dimer 989.75 ng/mlDDU (0-234) H 11/08/21 15:59 ABG pH 7.299 pH Units (7.350-7.450) L 11/10/21 07:30 ABG pCO2 49.4 mm Hg 11/10/21 07:30 ABG pO2 123.6 mm Hg (80.0-90.0) H 11/10/21 07:30 ABG HCO3 23.7 mmol/L (20.0-26.0) 11/10/21 07:30 ABG O2 Saturation 97.9 % (95.0-99.0) 11/10/21 07:30 ABG O2 Content 14.3 (0.0-44) 11/10/21 07:30 ABG Base Excess -2.9 mmol/L (-2.0-3.0) L 11/10/21 07:30 ABG Hemoglobin 10.4 gm/dl (14.0-18.0) L 11/10/21 07:30 ABG Carboxyhemoglobin 1.1 % (0.0-5.0) 11/10/21 07:30 ABG Methemoglobin 0.2 % (0.0-1.5) 11/10/21 07:30 VBG pH 7.295 (7.320-7.420) L 11/08/21 14:58 Oxyhemoglobin 96.5 % (95.0-99.0) 11/10/21 07:30 FiO2 50 % 11/10/21 07:30 Sodium 133 mmol/L (137-145) L 11/10/21 07:43 Potassium 6.5 mmol/L (3.6-5.0) H* D 11/09/21 07:30 Chloride 89.6 mmol/L (98-107) L 11/10/21 07:43 Carbon Dioxide 25 mmol/L (22-30) 11/10/21 07:43 Anion Gap 25 mmol/L 11/10/21 07:43 BUN 45 mg/dL (9-20) H 11/10/21 07:43 Creatinine 19.8 mg/dL (0.8-1.3) H 11/09/21 07:30 Estimated GFR 3 ml/min 11/09/21 07:30 BUN/Creatinine Ratio 4 % 11/09/21 07:30 Glucose 253 mg/dL (75-100) H 11/10/21 07:43 POC Glucose 159 mg/dL (70-105) H 11/09/21 21:22 Lactic Acid 0.80 mmol/L (0.7-2.0) 11/09/21 07:30 Calcium 7.6 mg/dL (8.4-10.2) L 11/10/21 07:43 Total Bilirubin 0.60 mg/dL (0.1-1.2) 11/10/21 07:43 AST 45 units/L (5-40) H 11/10/21 07:43 ALT 32 units/L (7-56) 11/10/21 07:43 Alkaline Phosphatase 119 units/L (35-129) 11/10/21 07:43 C-Reactive Protein 16.10 mg/dL (0.00-1.30) H 11/10/21 07:43 Total Protein 7.9 g/dL (6.3-8.2) 11/10/21 07:43 Albumin 4.5 g/dL (3.9-5) 11/10/21 07:43 Albumin/Globulin Ratio 1.3 % 11/10/21 07:43 Random Vancomycin 11.5 ug/mL (0-40.0) 11/10/21 07:43 SARS-CoV-2 (PCR) Negative (Negative) 11/09/21 10:19 Hepatitis A IgM Ab Non-reactive (NonReactive) 11/09/21 07:30 Hep Bs Antigen Non-reactive (Negative) 11/09/21 07:30 Hep B Core IgM Ab Non-reactive (NonReactive) 11/09/21 07:30 Hepatitis C Antibody Non-reactive (NonReactive) 11/09/21 07:30 Microbiology: Microbiology 11/08/21 15:28 Peripheral/Venous Blood Culture - Preliminary NO GROWTH AFTER 24 HOURS 11/08/21 15:28 Peripheral/Venous Blood Culture - Preliminary NO GROWTH AFTER 24 HOURS Vargas/IV: Voiding Method Urinal Active Medications - Current Medications Current Medications: Generic Name Dose Route Start Last Admin Trade Name Freq PRN Reason Stop Dose Admin Acetaminophen 650 mg 11/08/21 18:36 11/09/21 22:34 Acetaminophen 325 Mg Tab PO 650 mg Q4H PRN Administration Pain MILD(1-3)/Fever >100.5/RAMIREZ Amlodipine Besylate 10 mg 11/09/21 10:00 11/09/21 09:55 Amlodipine 10 Mg Tab PO Not Given QDAY [facility] Hydralazine HCl 10 mg 11/09/21 08:32 Hydralazine 20 Mg/1 Ml Inj IV Q4H PRN sbp> 160 Sodium Chloride 100 mls @ 999 mls/hr 11/08/21 22:34 Nacl 0.9% IV SHELBI PRN Hypotension Cefepime HCl 1 gm in 100 mls @ 200 mls/hr 11/09/21 18:00 11/09/21 18:49 Cefepime/Ns 1 Gm/100 Ml IV 200 mls/hr QPM [facility] Administration Protocol Insulin Human Lispro 0 unit 11/09/21 07:30 11/09/21 22:41 Insulin Lispro 100 Unit/Ml SUB-Q 2 unit ACHS [facility] Administration Protocol Metoclopramide HCl 5 mg 11/08/21 21:37 Metoclopramide 10 Mg/2 Ml Inj IV Q6H PRN Nausea And Vomiting Ondansetron HCl 4 mg 11/08/21 18:36 11/09/21 20:30 Ondansetron 4 Mg/2 Ml Inj IV 4 mg Q8H PRN Administration Nausea And Vomiting Sodium Chloride 10 ml 11/08/21 22:00 11/10/21 01:35 Sodium Chloride 0.9% 10 Ml Flush Syringe IV 10 ml BID ELLEN Administration Sodium Chloride 10 ml 11/08/21 18:36 Sodium Chloride 0.9% 10 Ml Flush Syringe IV PRN PRN LINE FLUSH
[2021-11-10] MEDS: INSULIN LISPRO 100 UNIT/ML SUB-Q SCH ×4 (09:15→22:32)
[2021-11-10] MEDS ORDERED: SODIUM POLYSTYRENE 15 GM/60 ML ORAL LIQD PO NR (09:30)
--- NOTE | 2021-11-10 10:40 | Progress Note ---
Assessment and Plan Cultures: 11/08/2021 blood culture: no growth so far. A/P: 31-year-old male with diabetes mellitus type 2, hypertension, ESRD on HD was admitted with fever and chills going on for 2 to 3 days: #Fever, sepsis: Could be from infected HD catheter in left femoral region v/s bilateral feet wounds present for >1 month, does follow outpt with podiatry. #ESRD on HD: Renally adjust antibiotics. #Diabetes mellitus type 2, uncontrolled #Hypertension #Acute thrombocytopenia Recs: -continue renally adjusted cefepime, vancomycin -Follow-up blood cultures -f/u MRI of bilateral feet -Wound care consult Dick Pang MD, [facility] O: [phone] F: [phone] C: [phone] Subjective Date of service: 11/10/21 Interval history: sleeping, no fever, no complaints. awaiting MRI Objective - Exam Narrative Exam: Physical Exam: Constitutional: sleeping. No acute distress Head, Ears, Nose: Normocephalic, atraumatic. External ears, nose normal Eyes: Conjunctivae/corneas clear. No icterus. No ptosis. Neck: Supple, no meningeal signs Cardiovascular: S1, S2 + Respiratory: Good air entry, clear to auscultation bilaterally GI: Soft, non-tender; bowel sounds normal. No peritoneal signs Musculoskeletal: b/l feet in dressings. L groin HD cath + Skin: No rash or abscess Hem/Lymphatic: No palpable cervical or supraclavicular nodes. No lymphangitis Psych: Mood ok. Affect normal Neurological: sleeping, easily awakened. No gross abnormality - Constitutional Vitals: Vital Signs Temp Pulse Resp BP Pulse Ox 98.2 F 116 H 20 140/67 91 11/10/21 05:20 11/10/21 05:20 11/10/21 05:20 11/10/21 05:20 11/10/21 05:20 Temperature -Last 24 Hours Temperature 98.2 F Temperature 98.1 F Temperature 98.3 F Temperature 98.9 F Temperature 99.1 F Temperature 98.6 F - Labs CBC & Chem 7: 11/10/21 07:43 11/10/21 07:43 Labs: Abnormal lab results 11/09/21 11/09/21 11/10/21 Range/Units 18:18 21:22 07:10 RBC (3.65-5.03) M/mm3 Hgb (11.8-15.2) gm/dl Hct (35.5-45.6) % RDW (13.2-15.2) % Plt Count (140-440) K/mm3 Lymph % (Auto) (13.4-35.0) % [place] % (Auto) (0.0-7.3) % Lymph # (Auto) (1.2-5.4) K/mm3 Seg Neutrophils % (40.0-70.0) % ABG pH (7.350-7.450) pH Units ABG pO2 (80.0-90.0) mm Hg ABG Base Excess (-2.0-3.0) mmol/L ABG Hemoglobin (14.0-18.0) gm/dl Sodium (137-145) mmol/L Potassium (3.6-5.0) mmol/L Chloride (98-107) mmol/L BUN (9-20) mg/dL Creatinine (0.8-1.3) mg/dL Glucose (75-100) mg/dL POC Glucose 126 H 159 H 245 H (70-105) mg/dL Lactic Acid (0.7-2.0) mmol/L Calcium (8.4-10.2) mg/dL AST (5-40) units/L C-Reactive Protein (0.00-1.30) mg/dL 11/10/21 11/10/21 11/10/21 Range/Units 07:30 07:43 07:43 RBC 3.56 L (3.65-5.03) M/mm3 Hgb 10.0 L (11.8-15.2) gm/dl Hct 31.6 L (35.5-45.6) % RDW 20.2 H (13.2-15.2) % Plt Count 137 L (140-440) K/mm3 Lymph % (Auto) 6.4 L (13.4-35.0) % [place] % (Auto) 8.0 H (0.0-7.3) % Lymph # (Auto) 0.4 L (1.2-5.4) K/mm3 Seg Neutrophils % 84.9 H (40.0-70.0) % ABG pH 7.299 L (7.350-7.450) pH Units ABG pO2 123.6 H (80.0-90.0) mm Hg ABG Base Excess -2.9 L (-2.0-3.0) mmol/L ABG Hemoglobin 10.4 L (14.0-18.0) gm/dl Sodium 133 L (137-145) mmol/L Potassium 6.5 H* (3.6-5.0) mmol/L Chloride 89.6 L (98-107) mmol/L BUN 45 H (9-20) mg/dL Creatinine 13.8 H (0.8-1.3) mg/dL Glucose 253 H (75-100) mg/dL POC Glucose (70-105) mg/dL Lactic Acid (0.7-2.0) mmol/L Calcium 7.6 L (8.4-10.2) mg/dL AST 45 H (5-40) units/L C-Reactive Protein 16.10 H (0.00-1.30) mg/dL 11/10/21 Range/Units 07:43 RBC (3.65-5.03) M/mm3 Hgb (11.8-15.2) gm/dl Hct (35.5-45.6) % RDW (13.2-15.2) % Plt Count (140-440) K/mm3 Lymph % (Auto) (13.4-35.0) % [place] % (Auto) (0.0-7.3) % Lymph # (Auto) (1.2-5.4) K/mm3 Seg Neutrophils % (40.0-70.0) % ABG pH (7.350-7.450) pH Units ABG pO2 (80.0-90.0) mm Hg ABG Base Excess (-2.0-3.0) mmol/L ABG Hemoglobin (14.0-18.0) gm/dl Sodium (137-145) mmol/L Potassium (3.6-5.0) mmol/L Chloride (98-107) mmol/L BUN (9-20) mg/dL Creatinine (0.8-1.3) mg/dL Glucose (75-100) mg/dL POC Glucose (70-105) mg/dL Lactic Acid 5.00 H* (0.7-2.0) mmol/L Calcium (8.4-10.2) mg/dL AST (5-40) units/L C-Reactive Protein (0.00-1.30) mg/dL
[2021-11-10] MEDS: prednisoLONE ACETATE 1% OPHTH SUSP 5 ML OD SCH ×2 (10:48→23:23)
[2021-11-10] MEDS: amLODIPine 10 MG TAB PO SCH (10:51)
[2021-11-10] MEDS ORDERED: DEXTROSE 50% IN WATER (25GM) 50 ML SYRINGE IV PRN (11:18)
[2021-11-10] MEDS ORDERED: SODIUM CHLORIDE 0.9% 100 ML IV PRN (16:05)
--- NOTE | 2021-11-10 16:44 | Progress Note ---
Assessment and Plan - Patient Problems (1) Type 2 diabetes mellitus with diabetic chronic kidney disease Current Visit: Yes Status: Acute Plan to address problem: Blood sugar management by primary attending. (2) Anemia in end-stage renal disease Current Visit: Yes Status: Acute Plan to address problem: Give erythropoietin on dialysis. Follow-up hemoglobin (3) Hypertensive chronic kidney disease with stage 5 chronic kidney disease or end stage renal disease Current Visit: Yes Status: Acute Plan to address problem: Follow-up blood pressure on current medications (4) Bacteremia Current Visit: Yes Status: Acute Plan to address problem: Follow-up cultures. Continue empiric antibiotics. Will need permacath removed if patient has bacteremia. Hopefully AV fistula is mature and can be used (5) Hyperkalemia Current Visit: Yes Status: Acute Plan to address problem: Dialyze on a low potassium bath and follow-up potassium. (6) SIRS (systemic inflammatory response syndrome) Current Visit: Yes Status: Acute Plan to address problem: Cultures obtained. Continue empiric antibiotics and follow-up culture and sensitivity (7) ESRD needing dialysis Current Visit: Yes Status: Chronic Plan to address problem: Hemodialysis today. Reevaluate the need for dialysis tomorrow Subjective Date of service: 11/10/21 Principal diagnosis: SIRS, end-stage renal disease Interval history: Patient seen lying in bed. Still feels weak. No fever today. No nausea vomiting Objective - Exam Narrative Exam: Young -[place]wegian male lying in bed in no acute distress HEENT: NCAT, pink conjunctiva, anicteric sclera Neck: Supple, no venous distention CVS: S1S2 RRR with no murmur, rub or gallop Chest: Clear to auscultation but breath sounds diminished in lower zones Abdomen: Protuberant, soft, nontender, no organomegaly, bowel sounds are present Extremities: No edema, dressings both feet Right upper extremity AV fistula with thrill Skin warm and dry Genitourinary deferred Neuro: Awake, alert no focal deficits - Vital Signs Vital signs: Vital Signs - 12hr 11/10/21 11/10/21 11/10/21 05:20 10:00 10:26 Temperature 98.2 F 97.9 F Pulse Rate 116 H 98 H Respiratory 20 18 Rate Blood Pressure 140/67 104/57 O2 Sat by Pulse 91 96 95 Oximetry 11/10/21 10:51 Temperature Pulse Rate 95 H Respiratory Rate Blood Pressure 125/68 O2 Sat by Pulse Oximetry - Lab 11/10/21 07:43 11/10/21 07:43 Most recent lab results ABG pH 7.299 pH Units (7.350-7.450) L 11/10/21 07:30 ABG pCO2 49.4 mm Hg 11/10/21 07:30 ABG pO2 123.6 mm Hg (80.0-90.0) H 11/10/21 07:30 ABG HCO3 23.7 mmol/L (20.0-26.0) 11/10/21 07:30 ABG O2 Saturation 97.9 % (95.0-99.0) 11/10/21 07:30 Calcium 7.6 mg/dL (8.4-10.2) L 11/10/21 07:43 Medications & Allergies - Medications Allergies/Adverse Reactions: Allergies No Known Allergies Allergy (Unverified 05/21/15 08:18) Home Medications: Home Medications Medication Instructions Recorded Confirmed Last Taken Type Blood Sugar Diagnostic [Blood 1 each PRN #1 box 05/21/15 11/09/21 Unknown Rx Glucose Test Strip] Blood-Glucose Meter [Blood Glucose 1 each PRN #1 kit 05/21/15 11/09/21 Unknown Rx Monitor] Sulfamethoxazole/Trimethoprim 1 each PO BID #20 tablet 05/21/15 11/09/21 Unknown Rx [Bactrim DS TAB] lisinopriL [Zestril TAB] 20 mg PO QDAY #30 tablet 05/21/15 11/09/21 Unknown Rx metFORMIN [Glucophage] 500 mg PO BID #60 tablet 05/21/15 11/09/21 Unknown Rx Active Medications: Generic Name Dose Route Start Last Admin Trade Name Freq PRN Reason Stop Dose Admin Acetaminophen 650 mg 11/08/21 18:36 11/09/21 22:34 Acetaminophen 325 Mg Tab PO 650 mg Q4H PRN Administration Pain MILD(1-3)/Fever >100.5/RAMIREZ Amlodipine Besylate 10 mg 11/09/21 10:00 11/10/21 10:51 Amlodipine 10 Mg Tab PO 10 mg QDAY ELLEN Administration Dextrose 50 ml 11/10/21 11:18 11/10/21 11:23 Dextrose 50% In Water (25gm) 50 Ml Syringe IV 50 ml Q30MIN PRN Administration Hypoglycemia Protocol Hydralazine HCl 10 mg 11/09/21 08:32 Hydralazine 20 Mg/1 Ml Inj IV Q4H PRN sbp> 160 Sodium Chloride 100 mls @ 999 mls/hr 11/08/21 22:34 Nacl 0.9% IV SHELBI PRN Hypotension Cefepime HCl 1 gm in 100 mls @ 200 mls/hr 11/09/21 18:00 11/09/21 18:49 Cefepime/Ns 1 Gm/100 Ml IV 200 mls/hr QPM ELLEN Administration Protocol Vancomycin HCl 1 gm in 250 mls @ 167.007 mls/hr 11/11/21 20:00 Vancomycin/Ns 1 Gm/250 Ml IV 11/11/21 21:29 ONCE ONE Sodium Chloride 100 mls @ 999 mls/hr 11/10/21 16:05 Nacl 0.9% IV SHELBI PRN Hypotension Insulin Glargine 15 units 11/10/21 22:00 Insulin Glargine 100 Units/Ml SUB-Q QHS [facility] Insulin Human Lispro 0 unit 11/09/21 07:30 11/10/21 09:15 Insulin Lispro 100 Unit/Ml SUB-Q Not Given ACHS [facility] Protocol Metoclopramide HCl 5 mg 11/08/21 21:37 Metoclopramide 10 Mg/2 Ml Inj IV Q6H PRN Nausea And Vomiting Ondansetron HCl 4 mg 11/08/21 18:36 11/09/21 20:30 Ondansetron 4 Mg/2 Ml Inj IV 4 mg Q8H PRN Administration Nausea And Vomiting Prednisolone Acetate 2 drops 11/10/21 10:00 11/10/21 10:48 Prednisolone Acetate 1% Ophth Susp 5 Ml OD 2 drops BID ELLEN Administration Sodium Chloride 10 ml 11/08/21 22:00 11/10/21 10:49 Sodium Chloride 0.9% 10 Ml Flush Syringe IV 10 ml BID ELLEN Administration Sodium Chloride 10 ml 11/08/21 18:36 Sodium Chloride 0.9% 10 Ml Flush Syringe IV PRN PRN LINE FLUSH
[2021-11-10] MEDS: CEFEPIME/NS 1 GM/100 ML 1 GM/100 ML BAG IV SCH (18:50)
[2021-11-10] MEDS: INSULIN GLARGINE 100 UNITS/ML SUB-Q SCH (22:29)
[2021-11-11] MEDS: ONDANSETRON 4 MG/2 ML INJ IV PRN ×2 (00:23→23:16)
--- NOTE | 2021-11-11 07:32 | Progress Note ---
Assessment and Plan Assessment and plan: History of present illness: 31-year-old female with history of hypertension, T2DM, and end-stage renal disease comes in for fever chills sweats 2 to 3 days duration. Associated with nausea and vomiting. No cough. Some shortness of breath present for the last 3 days. Orthopnea present. Patient was vaccinated with 2 doses of Pfizer vaccine for COVID. No dysuria. No exacerbating or relieving factors. Compliant with hemodialysis. Hospital Course: 11/09: Patient appears lethargic. Agree with MRI bilateral feet ordered by ID to r/o infectious source (osteo). abx changes noted. Coronavirus pcr negative. 11/10: Code met due to lack of responsiveness. Admin narcan with good response. D/c morphine from [facility]. AVOID morphine, dilaudid etc at this time. Report of pain yesterday in right eye. Patient had recent surgery 3 weeks ago for retinal detachment repair. Ordered prednisolone OU drops. Awaiting completion of MR of BL LE. Will await nephrology recommendations regarding tunneled HD catheter in groin and if this can be d/c. 11/11: Awaiting completion of MRI of BL LE. No fevers since 11/07. Will follow ID and nephrology input. Assessment and Plan: #Possible Sepsis POA #BL foot wounds - unclear source (potentially feet vs HD catheter), fevers, chills, N/V - LA: 2.3, tachcardic, febrile - CXR: negative for obvious PNA - covid pcr negative. - blood cultures drawn - empiric abx: IV cefepime and vancomycin - MRI of bilateral feet. - ID consultation #ESRD needing hemodialysis #Hyperkalemia #Metabolic Acidosis #Anemia of CKD - patient has right arm av fistula and tunneled HD catheter in groin. was awaiting av fistula maturation. - HD catheter will need to remain in groin per nephrology unless patient noted to have bacteremia. - nephrology consultation for HD - trend serial bmp #Type 2 Diabetes with Hyperglycemia - hemoglobin A1c: Pending - home regimen: Unknown - current regimen: Moderate SSI - blood glucose goal 140-180 while inpatient - continue to monitor #Essential hypertension - hold home lisinopril due to hyperkalemia - started on norvasc 10 mg po daily #Recent surgery for Retinal Detachment s/p repair - surgery approximately 3 weeks prior to admission - ordered prednisolone OU drops - only apap for pain control at this time. #Acute metabolic encephalopathy (resolved) - transient from narcotic pain medication administration - avoid opoid narcotics at this time. #Advance care planning Disease education conducted, care plan discussed, diagnoses discussed, prognosis discussed, patient is full code, patient acknowledges understanding and agree with care plan, +30 minutes. History Interval history: Nauseous overnight, responded well to zofran. Patient states he does not like food here and that is what made him nauseous. MR of bl feet not completed. D/w RN this AM to coordinate with radiology to get completed. Hospitalist Physical - Physical exam Narrative exam: Physical Exam: VITAL SIGNS: Reviewed. GENERAL: The patient appears normally developed, Vital signs as documented. HEAD: No signs of head trauma. EYES: Pupils are equal. Extraocular motions intact. EARS: Hearing grossly intact. MOUTH: Oropharynx is normal. NECK: No adenopathy, no JVD. CHEST: Chest with clear breath sounds bilaterally. No wheezes, rales, or rhonchi. CARDIAC: Regular rate and rhythm. S1 and S2, without murmurs, gallops, or rubs. VASCULAR: No Edema. Peripheral pulses normal and equal in all extremities. ABDOMEN: Soft, non tender and non distended. No rebound or guarding, and no masses palpated. Bowel Sounds normal. MUSCULOSKELETAL: Good range of motion of all major joints. Extremities without clubbing, cyanosis or edema. NEUROLOGIC EXAM: Alert and oriented x 4. no focal sensory or strength deficits. PSYCHIATRIC: Mood normal. SKIN: detail exam as documented in skin assessment - Constitutional Vitals: Temp Pulse Resp BP Pulse Ox 98.7 F 101 H 23 114/64 98 11/11/21 04:03 11/11/21 05:46 11/11/21 05:46 11/11/21 04:03 11/11/21 05:46 General appearance: Present: no acute distress, well-nourished Results - Labs CBC & Chem 7: 11/10/21 07:43 11/11/21 04:18 Labs: Laboratory Last Values WBC 6.9 K/mm3 (4.5-11.0) 11/10/21 07:43 RBC 3.56 M/mm3 (3.65-5.03) L 11/10/21 07:43 Hgb 10.0 gm/dl (11.8-15.2) L 11/10/21 07:43 Hct 31.6 % (35.5-45.6) L 11/10/21 07:43 MCV 89 fl (84-94) 11/10/21 07:43 MCH 28 pg (28-32) 11/10/21 07:43 MCHC 32 % (32-34) 11/10/21 07:43 RDW 20.2 % (13.2-15.2) H 11/10/21 07:43 Plt Count 137 K/mm3 (140-440) L 11/10/21 07:43 Lymph % (Auto) 6.4 % (13.4-35.0) L 11/10/21 07:43 Carson % (Auto) 8.0 % (0.0-7.3) H 11/10/21 07:43 Eos % (Auto) 0.4 % (0.0-4.3) 11/10/21 07:43 Baso % (Auto) 0.3 % (0.0-1.8) 11/10/21 07:43 Lymph # (Auto) 0.4 K/mm3 (1.2-5.4) L 11/10/21 07:43 Carson # (Auto) 0.6 K/mm3 (0.0-0.8) 11/10/21 07:43 Eos # (Auto) 0.0 K/mm3 (0.0-0.4) 11/10/21 07:43 Baso # (Auto) 0.0 K/mm3 (0.0-0.1) 11/10/21 07:43 Add Manual Diff Complete 11/09/21 07:30 Total Counted 100 11/09/21 07:30 Seg Neutrophils % 84.9 % (40.0-70.0) H 11/10/21 07:43 Seg Neuts % (Manual) 80.0 % (40.0-70.0) H 11/09/21 07:30 Band Neutrophils % 0 % 11/09/21 07:30 Lymphocytes % (Manual) 11.0 % (13.4-35.0) L 11/09/21 07:30 Reactive Lymphs % (Man) 0 % 11/09/21 07:30 Monocytes % (Manual) 9.0 % (0.0-7.3) H 11/09/21 07:30 Eosinophils % (Manual) 0 % (0.0-4.3) 11/09/21 07:30 Basophils % (Manual) 0 % (0.0-1.8) 11/09/21 07:30 Metamyelocytes % 0 % 11/09/21 07:30 Myelocytes % 0 % 11/09/21 07:30 Promyelocytes % 0 % 11/09/21 07:30 Blast Cells % 0 % 11/09/21 07:30 Nucleated RBC % Not Reportable 11/09/21 07:30 Seg Neutrophils # 5.9 K/mm3 (1.8-7.7) 11/10/21 07:43 Seg Neutrophils # Man 5.9 K/mm3 (1.8-7.7) 11/09/21 07:30 Band Neutrophils # 0.0 K/mm3 11/09/21 07:30 Lymphocytes # (Manual) 0.8 K/mm3 (1.2-5.4) L 11/09/21 07:30 Abs React Lymphs (Man) 0.0 K/mm3 11/09/21 07:30 Monocytes # (Manual) 0.7 K/mm3 (0.0-0.8) 11/09/21 07:30 Eosinophils # (Manual) 0.0 K/mm3 (0.0-0.4) 11/09/21 07:30 Basophils # (Manual) 0.0 K/mm3 (0.0-0.1) 11/09/21 07:30 Metamyelocytes # 0.0 K/mm3 11/09/21 07:30 Myelocytes # 0.0 K/mm3 11/09/21 07:30 Promyelocytes # 0.0 K/mm3 11/09/21 07:30 Blast Cells # 0.0 K/mm3 11/09/21 07:30 WBC Morphology Not Reportable 11/09/21 07:30 Hypersegmented Neuts Not Reportable 11/09/21 07:30 Hyposegmented Neuts Not Reportable 11/09/21 07:30 Hypogranular Neuts Not Reportable 11/09/21 07:30 Smudge Cells Not Reportable 11/09/21 07:30 Toxic Granulation Not Reportable 11/09/21 07:30 Toxic Vacuolation Not Reportable 11/09/21 07:30 Dohle Bodies Not Reportable 11/09/21 07:30 Pelger-Huet Anomaly Not Reportable 11/09/21 07:30 Pilar Rods Not Reportable 11/09/21 07:30 Platelet Estimate Consistent w auto 11/09/21 07:30 Clumped Platelets Not Reportable 11/09/21 07:30 Plt Clumps, EDTA Not Reportable 11/09/21 07:30 Large Platelets Rare 11/09/21 07:30 Giant Platelets Not Reportable 11/09/21 07:30 Platelet Satelliting Not Reportable 11/09/21 07:30 Plt Morphology Comment Not Reportable 11/09/21 07:30 RBC Morphology Not Reportable 11/09/21 07:30 Dimorphic RBCs Not Reportable 11/09/21 07:30 Polychromasia Not Reportable 11/09/21 07:30 Hypochromasia Not Reportable 11/09/21 07:30 Poikilocytosis Not Reportable 11/09/21 07:30 Anisocytosis 1+ 11/09/21 07:30 Microcytosis Not Reportable 11/09/21 07:30 Macrocytosis Not Reportable 11/09/21 07:30 Spherocytes Not Reportable 11/09/21 07:30 Pappenheimer Bodies Not Reportable 11/09/21 07:30 Sickle Cells Not Reportable 11/09/21 07:30 Target Cells Not Reportable 11/09/21 07:30 Tear Drop Cells Not Reportable 11/09/21 07:30 Ovalocytes Not Reportable 11/09/21 07:30 Helmet Cells Not Reportable 11/09/21 07:30 Moreno-Heartwell Bodies Not Reportable 11/09/21 07:30 [place] Rings Not Reportable 11/09/21 07:30 Claudia Cells Not Reportable 11/09/21 07:30 Bite Cells Not Reportable 11/09/21 07:30 Crenated Cell Not Reportable 11/09/21 07:30 Elliptocytes Not Reportable 11/09/21 07:30 Acanthocytes (Spur) Not Reportable 11/09/21 07:30 Rouleaux Not Reportable 11/09/21 07:30 Hemoglobin C Crystals Not Reportable 11/09/21 07:30 Schistocytes Not Reportable 11/09/21 07:30 Malaria parasites Not Reportable 11/09/21 07:30 Eduardo Bodies Not Reportable 11/09/21 07:30 Hem Pathologist Commnt No 11/09/21 07:30 D-Dimer 989.75 ng/mlDDU (0-234) H 11/08/21 15:59 ABG pH 7.299 pH Units (7.350-7.450) L 11/10/21 07:30 ABG pCO2 49.4 mm Hg 11/10/21 07:30 ABG pO2 123.6 mm Hg (80.0-90.0) H 11/10/21 07:30 ABG HCO3 23.7 mmol/L (20.0-26.0) 11/10/21 07:30 ABG O2 Saturation 97.9 % (95.0-99.0) 11/10/21 07:30 ABG O2 Content 14.3 (0.0-44) 11/10/21 07:30 ABG Base Excess -2.9 mmol/L (-2.0-3.0) L 11/10/21 07:30 ABG Hemoglobin 10.4 gm/dl (14.0-18.0) L 11/10/21 07:30 ABG Carboxyhemoglobin 1.1 % (0.0-5.0) 11/10/21 07:30 ABG Methemoglobin 0.2 % (0.0-1.5) 11/10/21 07:30 VBG pH 7.295 (7.320-7.420) L 11/08/21 14:58 Oxyhemoglobin 96.5 % (95.0-99.0) 11/10/21 07:30 FiO2 50 % 11/10/21 07:30 Sodium 133 mmol/L (137-145) L 11/10/21 07:43 Potassium 4.1 mmol/L (3.6-5.0) D 11/11/21 04:18 Chloride 89.6 mmol/L (98-107) L 11/10/21 07:43 Carbon Dioxide 25 mmol/L (22-30) 11/10/21 07:43 Anion Gap 25 mmol/L 11/10/21 07:43 BUN 45 mg/dL (9-20) H 11/10/21 07:43 Creatinine 13.8 mg/dL (0.8-1.3) H 11/10/21 07:43 Estimated GFR 5 ml/min 11/10/21 07:43 BUN/Creatinine Ratio 3 % 11/10/21 07:43 Glucose 253 mg/dL (75-100) H 11/10/21 07:43 POC Glucose 119 mg/dL (70-105) H 11/10/21 21:45 Lactic Acid 1.70 mmol/L (0.7-2.0) 11/10/21 10:20 Calcium 7.6 mg/dL (8.4-10.2) L 11/10/21 07:43 Total Bilirubin 0.60 mg/dL (0.1-1.2) 11/10/21 07:43 AST 45 units/L (5-40) H 11/10/21 07:43 ALT 32 units/L (7-56) 11/10/21 07:43 Alkaline Phosphatase 119 units/L (35-129) 11/10/21 07:43 C-Reactive Protein 16.10 mg/dL (0.00-1.30) H 11/10/21 07:43 Total Protein 7.9 g/dL (6.3-8.2) 11/10/21 07:43 Albumin 4.5 g/dL (3.9-5) 11/10/21 07:43 Albumin/Globulin Ratio 1.3 % 11/10/21 07:43 Random Vancomycin 11.5 ug/mL (0-40.0) 11/10/21 07:43 SARS-CoV-2 (PCR) Negative (Negative) 11/09/21 10:19 Hepatitis A IgM Ab Non-reactive (NonReactive) 11/09/21 07:30 Hep Bs Antigen Non-reactive (Negative) 11/09/21 07:30 Hep B Core IgM Ab Non-reactive (NonReactive) 11/09/21 07:30 Hepatitis C Antibody Non-reactive (NonReactive) 11/09/21 07:30 Microbiology: Microbiology 11/08/21 15:28 Peripheral/Venous Blood Culture - Preliminary NO GROWTH AFTER 48 HOURS 11/08/21 15:28 Peripheral/Venous Blood Culture - Preliminary NO GROWTH AFTER 48 HOURS Vargas/IV: Voiding Method Urinal Active Medications - Current Medications Current Medications: Generic Name Dose Route Start Last Admin Trade Name Freq PRN Reason Stop Dose Admin Acetaminophen 650 mg 11/08/21 18:36 11/09/21 22:34 Acetaminophen 325 Mg Tab PO 650 mg Q4H PRN Administration Pain MILD(1-3)/Fever >100.5/RAMIREZ Amlodipine Besylate 10 mg 11/09/21 10:00 11/10/21 10:51 Amlodipine 10 Mg Tab PO 10 mg QDAY ELLEN Administration Dextrose 50 ml 11/10/21 11:18 11/10/21 11:23 Dextrose 50% In Water (25gm) 50 Ml Syringe IV 50 ml Q30MIN PRN Administration Hypoglycemia Protocol Hydralazine HCl 10 mg 11/09/21 08:32 Hydralazine 20 Mg/1 Ml Inj IV Q4H PRN sbp> 160 Sodium Chloride 100 mls @ 999 mls/hr 11/08/21 22:34 Nacl 0.9% IV SHELBI PRN Hypotension Cefepime HCl 1 gm in 100 mls @ 200 mls/hr 11/09/21 18:00 11/10/21 18:50 Cefepime/Ns 1 Gm/100 Ml IV Not Given QPM [facility] Protocol Vancomycin HCl 1 gm in 250 mls @ 167.007 mls/hr 11/11/21 20:00 Vancomycin/Ns 1 Gm/250 Ml IV 11/11/21 21:29 ONCE ONE Sodium Chloride 100 mls @ 999 mls/hr 11/10/21 16:05 Nacl 0.9% IV SHELBI PRN Hypotension Insulin Glargine 15 units 11/10/21 22:00 11/10/21 22:29 Insulin Glargine 100 Units/Ml SUB-Q 15 units QHS [facility] Administration Insulin Human Lispro 0 unit 11/09/21 07:30 11/10/21 22:32 Insulin Lispro 100 Unit/Ml SUB-Q Not Given ACHS [facility] Protocol Metoclopramide HCl 5 mg 11/08/21 21:37 Metoclopramide 10 Mg/2 Ml Inj IV Q6H PRN Nausea And Vomiting Ondansetron HCl 4 mg 11/08/21 18:36 11/11/21 00:23 Ondansetron 4 Mg/2 Ml Inj IV 4 mg Q8H PRN Administration Nausea And Vomiting Prednisolone Acetate 2 drops 11/10/21 10:00 11/10/21 23:23 Prednisolone Acetate 1% Ophth Susp 5 Ml OD 2 drops BID ELLEN Administration Sodium Chloride 10 ml 11/08/21 22:00 11/10/21 22:31 Sodium Chloride 0.9% 10 Ml Flush Syringe IV 10 ml BID ELLEN Administration Sodium Chloride 10 ml 11/08/21 18:36 Sodium Chloride 0.9% 10 Ml Flush Syringe IV PRN PRN LINE FLUSH
[2021-11-11] MEDS: INSULIN LISPRO 100 UNIT/ML SUB-Q SCH ×4 (08:42→22:00)
--- NOTE | 2021-11-11 09:23 | Progress Note ---
Assessment and Plan Cultures: 11/08/2021 blood culture: no growth so far A/P: 31-year-old male with diabetes mellitus type 2, hypertension, ESRD on HD was admitted with fever and chills going on for 2 to 3 days: #Fever, sepsis: Could be from infected HD catheter in left femoral region v/s bilateral feet wounds present for >1 month, does follow outpt with podiatry. Blood cultures so far are negative. #ESRD on HD: Renally adjust antibiotics. #Diabetes mellitus type 2, uncontrolled #Hypertension #Acute thrombocytopenia Recs: -continue renally adjusted cefepime, vancomycin -f/u MRI of bilateral feet -wound care consult Dick Pang MD, [facility] O: [phone] F: [phone] C: [phone] Subjective Date of service: 11/11/21 Principal diagnosis: SIRS, end-stage renal disease Interval history: No fever. Having some nausea and vomiting. Still awaiting MRI Objective - Exam Narrative Exam: Physical Exam: Constitutional: sleepy, can be awakened No acute distress Head, Ears, Nose: Normocephalic, atraumatic. External ears, nose normal Eyes: Conjunctivae/corneas clear. No icterus. No ptosis. Neck: Supple, no meningeal signs Cardiovascular: S1, S2 + Respiratory: Good air entry, clear to auscultation bilaterally GI: Soft, non-tender; bowel sounds normal. No peritoneal signs Musculoskeletal: b/l feet in dressings. L groin HD cath + Skin: No rash or abscess Hem/Lymphatic: No palpable cervical or supraclavicular nodes. No lymphangitis Psych: Mood ok. Affect normal Neurological: sleepy, easily awakened. No gross abnormality - Constitutional Vitals: Vital Signs Temp Pulse Resp BP Pulse Ox 98.7 F 99 H 16 114/64 98 11/11/21 04:03 11/11/21 08:52 11/11/21 08:52 11/11/21 04:03 11/11/21 08:55 Temperature -Last 24 Hours Temperature 98.7 F Temperature 97.6 F Temperature 98.5 F Temperature 99.2 F Temperature 99.0 F Temperature 97.9 F - Labs CBC & Chem 7: 11/10/21 07:43 11/11/21 04:18 Labs: Abnormal lab results 11/10/21 11/10/21 11/10/21 Range/Units 07:10 11:09 21:45 POC Glucose 245 H 53 L 119 H (70-105) mg/dL
--- NOTE | 2021-11-11 10:32 | Electrocardiograph Report ---
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
[2021-11-11] MEDS: amLODIPine 10 MG TAB PO SCH (11:21)
[2021-11-11] MEDS: prednisoLONE ACETATE 1% OPHTH SUSP 5 ML OD SCH ×2 (11:21→22:44)
--- NOTE | 2021-11-11 11:21 | Progress Note ---
Assessment and Plan - Patient Problems (1) SIRS (systemic inflammatory response syndrome) Current Visit: Yes Status: Acute Plan to address problem: Source probably line related versus foot ulcers. Blood cultures negative so far. Continue empiric antibiotics and follow-up culture and sensitivity (2) Hyperkalemia Current Visit: Yes Status: Acute Plan to address problem: Improved with dialysis. Follow-up potassium. (3) Type 2 diabetes mellitus with diabetic chronic kidney disease Current Visit: Yes Status: Acute Plan to address problem: Blood sugar management by primary attending. (4) Anemia in end-stage renal disease Current Visit: Yes Status: Acute Plan to address problem: Give erythropoietin on dialysis. Follow-up hemoglobin (5) Hypertensive chronic kidney disease with stage 5 chronic kidney disease or end stage renal disease Current Visit: Yes Status: Acute Plan to address problem: Follow-up blood pressure on current medications (6) ESRD needing dialysis Current Visit: Yes Status: Chronic Plan to address problem: Hemodialysis on a Monday, and Monday schedule. Subjective Date of service: 11/11/21 Principal diagnosis: SIRS, end-stage renal disease Interval history: Patient seen lying in bed. Complains of nausea. No vomiting. No abdominal souleymane n. Objective - Exam Narrative Exam: Young -[place]ong[place]ian male lying in bed in no acute distress HEENT: NCAT, pink conjunctiva, anicteric sclera Neck: Supple, no venous distention CVS: S1S2 RRR with no murmur, rub or gallop Chest: Clear to auscultation but breath sounds diminished in lower zones Abdomen: Protuberant, soft, nontender, no organomegaly, bowel sounds are present Extremities: No edema, dressings both feet Right upper extremity AV fistula with thrill Skin warm and dry Genitourinary deferred Neuro: Awake, alert no focal deficits - Vital Signs Vital signs: Vital Signs - 12hr 11/11/21 11/11/21 11/11/21 01:10 04:03 05:46 Temperature 98.7 F Pulse Rate 96 H 101 H 101 H Respiratory 18 23 Rate Blood Pressure 114/64 O2 Sat by Pulse 99 97 98 Oximetry 11/11/21 11/11/21 08:52 08:55 Temperature Pulse Rate 99 H Respiratory 16 Rate Blood Pressure O2 Sat by Pulse 98 98 Oximetry - Lab 11/10/21 07:43 11/11/21 04:18 Most recent lab results ABG pH 7.299 pH Units (7.350-7.450) L 11/10/21 07:30 ABG pCO2 49.4 mm Hg 11/10/21 07:30 ABG pO2 123.6 mm Hg (80.0-90.0) H 11/10/21 07:30 ABG HCO3 23.7 mmol/L (20.0-26.0) 11/10/21 07:30 ABG O2 Saturation 97.9 % (95.0-99.0) 11/10/21 07:30 Calcium 7.6 mg/dL (8.4-10.2) L 11/10/21 07:43 Medications & Allergies - Medications Allergies/Adverse Reactions: Allergies No Known Allergies Allergy (Unverified 05/21/15 08:18) Home Medications: Home Medications Medication Instructions Recorded Confirmed Last Taken Type Blood Sugar Diagnostic [Blood 1 each PRN #1 box 05/21/15 11/09/21 Unknown Rx Glucose Test Strip] Blood-Glucose Meter [Blood Glucose 1 each PRN #1 kit 05/21/15 11/09/21 Unknown Rx Monitor] Sulfamethoxazole/Trimethoprim 1 each PO BID #20 tablet 05/21/15 11/09/21 Unknown Rx [Bactrim DS TAB] lisinopriL [Zestril TAB] 20 mg PO QDAY #30 tablet 05/21/15 11/09/21 Unknown Rx metFORMIN [Glucophage] 500 mg PO BID #60 tablet 05/21/15 11/09/21 Unknown Rx Active Medications: Generic Name Dose Route Start Last Admin Trade Name Liveq PRN Reason Stop Dose Admin Acetaminophen 650 mg 11/08/21 18:36 11/09/21 22:34 Acetaminophen 325 Mg Tab PO 650 mg Q4H PRN Administration Pain MILD(1-3)/Fever >100.5/RAMIREZ Amlodipine Besylate 10 mg 11/09/21 10:00 11/10/21 10:51 Amlodipine 10 Mg Tab PO 10 mg QDAY ELLEN Administration Dextrose 50 ml 11/10/21 11:18 11/10/21 11:23 Dextrose 50% In Water (25gm) 50 Ml Syringe IV 50 ml Q30MIN PRN Administration Hypoglycemia Protocol Hydralazine HCl 10 mg 11/09/21 08:32 Hydralazine 20 Mg/1 Ml Inj IV Q4H PRN sbp> 160 Cefepime HCl 1 gm in 100 mls @ 200 mls/hr 11/09/21 18:00 11/10/21 18:50 Cefepime/Ns 1 Gm/100 Ml IV Not Given QPM [facility] Protocol Vancomycin HCl 1 gm in 250 mls @ 167.007 mls/hr 11/11/21 20:00 Vancomycin/Ns 1 Gm/250 Ml IV 11/11/21 21:29 ONCE ONE Sodium Chloride 100 mls @ 999 mls/hr 11/10/21 16:05 Nacl 0.9% IV SHELBI PRN Hypotension Insulin Glargine 15 units 11/10/21 22:00 11/10/21 22:29 Insulin Glargine 100 Units/Ml SUB-Q 15 units QHS ELLEN Administration Insulin Human Lispro 0 unit 11/09/21 07:30 11/11/21 08:42 Insulin Lispro 100 Unit/Ml SUB-Q Not Given ACHS [facility] Protocol Metoclopramide HCl 5 mg 11/08/21 21:37 Metoclopramide 10 Mg/2 Ml Inj IV Q6H PRN Nausea And Vomiting Ondansetron HCl 4 mg 11/08/21 18:36 11/11/21 00:23 Ondansetron 4 Mg/2 Ml Inj IV 4 mg Q8H PRN Administration Nausea And Vomiting Prednisolone Acetate 2 drops 11/10/21 10:00 11/10/21 23:23 Prednisolone Acetate 1% Ophth Susp 5 Ml OD 2 drops BID ELLEN Administration Sodium Chloride 10 ml 11/08/21 22:00 11/10/21 22:31 Sodium Chloride 0.9% 10 Ml Flush Syringe IV 10 ml BID ELLEN Administration Sodium Chloride 10 ml 11/08/21 18:36 Sodium Chloride 0.9% 10 Ml Flush Syringe IV PRN PRN LINE FLUSH
[2021-11-11] MEDS ORDERED: LORazepam 2 MG/ML VIAL IV SCH (13:45)
[2021-11-11] MEDS: CEFEPIME/NS 1 GM/100 ML 1 GM/100 ML BAG IV SCH (18:47)
[2021-11-11] MEDS ORDERED: VANCOMYCIN/NS 1 GM/250 ML 1 GM/250 ML BAG IV ONE (20:00)
[2021-11-11] MEDS: INSULIN GLARGINE 100 UNITS/ML SUB-Q SCH (22:00)
[2021-11-12] MEDS: ACETAMINOPHEN 325 MG TAB PO PRN (05:47)
[2021-11-12] MEDS: INSULIN LISPRO 100 UNIT/ML SUB-Q SCH ×3 (07:30→16:30)
--- NOTE | 2021-11-12 08:02 | Progress Note ---
Assessment and Plan - Patient Problems (1) SIRS (systemic inflammatory response syndrome) Current Visit: Yes Status: Acute Plan to address problem: Source probably line related versus foot ulcers. Blood cultures negative so far. Continue empiric antibiotics and follow-up culture and sensitivity (2) Hyperkalemia Current Visit: Yes Status: Acute Plan to address problem: Improved with dialysis. Follow-up potassium. (3) Type 2 diabetes mellitus with diabetic chronic kidney disease Current Visit: Yes Status: Acute Plan to address problem: Blood sugar management by primary attending. (4) Anemia in end-stage renal disease Current Visit: Yes Status: Acute Plan to address problem: Give erythropoietin on dialysis. Follow-up hemoglobin (5) Hypertensive chronic kidney disease with stage 5 chronic kidney disease or end stage renal disease Current Visit: Yes Status: Acute Plan to address problem: Follow-up blood pressure on current medications (6) ESRD needing dialysis Current Visit: Yes Status: Chronic Plan to address problem: Hemodialysis on a Monday, and Monday schedule. (7) Headache around the eyes Current Visit: Yes Status: Acute Plan to address problem: Concerned about diabetic retinopathy with hemorrhage. Consider ophthalmology consultation if possible. Subjective Date of service: 11/12/21 Principal diagnosis: SIRS, end-stage renal disease Interval history: Patient seen lying in bed. Complains of nausea and severe headache around the right eye. He does have a history of diabetic retinopathy with hemorrhage in the past. No vomiting. No abdominal pain. Objective - Exam Narrative Exam: Young -Iraqi male lying in bed in moderate acute distress HEENT: NCAT, pink conjunctiva, anicteric sclera Neck: Supple, no venous distention CVS: S1S2 RRR with no murmur, rub or gallop Chest: Clear to auscultation but breath sounds diminished in lower zones Abdomen: Protuberant, soft, nontender, no organomegaly, bowel sounds are present Extremities: No edema, dressings both feet Right upper extremity AV fistula with thrill Skin warm and dry Genitourinary deferred Neuro: Awake, alert no focal deficits - Vital Signs Vital signs: Vital Signs - 12hr 11/11/21 11/11/21 11/12/21 21:00 22:00 00:18 Pulse Rate 100 H Respiratory 18 12 Rate O2 Sat by Pulse 95 99 100 Oximetry - Lab 11/10/21 07:43 11/11/21 04:18 Most recent lab results ABG pH 7.299 pH Units (7.350-7.450) L 11/10/21 07:30 ABG pCO2 49.4 mm Hg 11/10/21 07:30 ABG pO2 123.6 mm Hg (80.0-90.0) H 11/10/21 07:30 ABG HCO3 23.7 mmol/L (20.0-26.0) 11/10/21 07:30 ABG O2 Saturation 97.9 % (95.0-99.0) 11/10/21 07:30 Calcium 7.6 mg/dL (8.4-10.2) L 11/10/21 07:43 Phosphorus 8.20 mg/dL (2.5-4.5) H 11/11/21 22:21 Magnesium 1.90 mg/dL (1.7-2.3) 11/11/21 22:21 Medications & Allergies - Medications Allergies/Adverse Reactions: Allergies No Known Allergies Allergy (Unverified 05/21/15 08:18) Home Medications: Home Medications Medication Instructions Recorded Confirmed Last Taken Type Blood Sugar Diagnostic [Blood 1 each PRN #1 box 05/21/15 11/09/21 Unknown Rx Glucose Test Strip] Blood-Glucose Meter [Blood Glucose 1 each PRN #1 kit 05/21/15 11/09/21 Unknown Rx Monitor] Sulfamethoxazole/Trimethoprim 1 each PO BID #20 tablet 05/21/15 11/09/21 Unknown Rx [Bactrim DS TAB] lisinopriL [Zestril TAB] 20 mg PO QDAY #30 tablet 05/21/15 11/09/21 Unknown Rx metFORMIN [Glucophage] 500 mg PO BID #60 tablet 05/21/15 11/09/21 Unknown Rx Active Medications: Generic Name Dose Route Start Last Admin Trade Name Freq PRN Reason Stop Dose Admin Acetaminophen 650 mg 11/08/21 18:36 11/12/21 05:47 Acetaminophen 325 Mg Tab PO 650 mg Q4H PRN Administration Pain MILD(1-3)/Fever >100.5/RAMIREZ Amlodipine Besylate 10 mg 11/09/21 10:00 11/11/21 11:21 Amlodipine 10 Mg Tab PO 10 mg QDAY ELLEN Administration Dextrose 50 ml 11/10/21 11:18 11/10/21 11:23 Dextrose 50% In Water (25gm) 50 Ml Syringe IV 50 ml Q30MIN PRN Administration Hypoglycemia Protocol Hydralazine HCl 10 mg 11/09/21 08:32 Hydralazine 20 Mg/1 Ml Inj IV Q4H PRN sbp> 160 Cefepime HCl 1 gm in 100 mls @ 200 mls/hr 11/09/21 18:00 11/11/21 18:47 Cefepime/Ns 1 Gm/100 Ml IV 200 mls/hr QPM ELLEN Administration Protocol Sodium Chloride 100 mls @ 999 mls/hr 11/10/21 16:05 Nacl 0.9% IV SHELBI PRN Hypotension Vancomycin HCl 1 gm in 250 mls @ 167.007 mls/hr 11/12/21 09:00 Vancomycin/Ns 1 Gm/250 Ml IV 11/12/21 10:29 ONCE ONE Insulin Glargine 15 units 11/10/21 22:00 11/11/21 22:00 Insulin Glargine 100 Units/Ml SUB-Q Not Given QHS [facility] Insulin Human Lispro 0 unit 11/09/21 07:30 11/11/21 22:00 Insulin Lispro 100 Unit/Ml SUB-Q Not Given ACHS [facility] Protocol Lorazepam 1 mg 11/11/21 13:45 Lorazepam 2 Mg/Ml Vial IV [employer] Metoclopramide HCl 5 mg 11/08/21 21:37 Metoclopramide 10 Mg/2 Ml Inj IV Q6H PRN Nausea And Vomiting Ondansetron HCl 4 mg 11/08/21 18:36 11/11/21 23:16 Ondansetron 4 Mg/2 Ml Inj IV 4 mg Q8H PRN Administration Nausea And Vomiting Prednisolone Acetate 2 drops 11/10/21 10:00 11/11/21 22:44 Prednisolone Acetate 1% Ophth Susp 5 Ml OD 2 drops BID ELLEN Administration Sodium Chloride 10 ml 11/08/21 22:00 11/11/21 22:00 Sodium Chloride 0.9% 10 Ml Flush Syringe IV Not Given BID ELLEN Sodium Chloride 10 ml 11/08/21 18:36 Sodium Chloride 0.9% 10 Ml Flush Syringe IV PRN PRN LINE FLUSH
--- NOTE | 2021-11-12 08:03 | Discharge Summary ---
Providers - Providers Date of Admission: 11/08/21 18:36 Date of discharge: 11/12/21 Attending physician: ABHISHEK CANNON MD 11/08/21 18:34 Consult to Physician [CONS] Urgent Comment: Consulting Provider: UMBERTO MONTOYA Physician Instructions: Reason For Exam: ESRD needing dialysis 11/09/21 06:58 Consult to Physician [CONS] Routine Comment: Consulting Provider: MURPHY WELLS Physician Instructions: Reason For Exam: Fever 11/10/21 07:00 Consult to Wound/ET Nurse [CONS] Routine Reason For Exam: wound eval Primary care physician: CERTIFIED PROSTHETIST VICE PRESIDENT Hospitalization Reason for admission: fever Condition: Fair Hospital course: History of present illness: 31-year-old female with history of hypertension, T2DM, and end-stage renal disease comes in for fever chills sweats 2 to 3 days duration. Associated with nausea and vomiting. No cough. Some shortness of breath present for the last 3 days. Orthopnea present. Patient was vaccinated with 2 doses of Botanical Tans vaccine for COVID. No dysuria. No exacerbating or relieving factors. Compliant with hemodialysis. Hospital Course: 11/09: Patient appears lethargic. Agree with MRI bilateral feet ordered by ID to r/o infectious source (osteo). abx changes noted. Coronavirus pcr negative. 11/10: Code met due to lack of responsiveness. Admin narcan with good response. D/c morphine from [facility]. AVOID morphine, dilaudid etc at this time. Report of pain yesterday in right eye. Patient had recent surgery 3 weeks ago for retinal detachment repair. Ordered prednisolone OU drops. Awaiting completion of MR of BL LE. Will await nephrology recommendations regarding tunneled HD catheter in groin and if this can be d/c. 11/11: Awaiting completion of MRI of BL LE. No fevers since 11/07. Will follow ID and nephrology input. 11/12: Today is day 5 of IV abx, can d/c after today per ID. Patient refused BL LE MRI. No fevers since 11/07. Will discharge patient today. Instructions to follow up outpatient with his quiller runner regarding his foot wounds. Also instructed to follow up outpatient with gathering worker and primary care physician. Rx for amlodipine in addition to home lisinopril and metformin meds which he should continue. Assessment and Plan: #Possible Sepsis POA #BL foot wounds - unclear source (potentially feet vs HD catheter), fevers, chills, N/V - LA: 2.3, tachcardic, febrile - CXR: negative for obvious PNA - covid pcr negative. - blood cultures drawn - empiric abx: IV cefepime and vancomycin - MRI of bilateral feet. - ID consultation #ESRD needing hemodialysis #Hyperkalemia #Metabolic Acidosis #Anemia of CKD - patient has right arm av fistula and tunneled HD catheter in groin. was awaiting av fistula maturation. - HD catheter will need to remain in groin per nephrology unless patient noted to have bacteremia. - nephrology consultation for HD - trend serial bmp #Type 2 Diabetes with Hyperglycemia - hemoglobin A1c: Pending - home regimen: Unknown - current regimen: Moderate SSI - blood glucose goal 140-180 while inpatient - continue to monitor #Essential hypertension - hold home lisinopril due to hyperkalemia - started on norvasc 10 mg po daily #Recent surgery for Retinal Detachment s/p repair - surgery approximately 3 weeks prior to admission - ordered prednisolone OU drops - only apap for pain control at this time. #Acute metabolic encephalopathy (resolved) - transient from narcotic pain medication administration - avoid opoid narcotics at this time. #Advance care planning Disease education conducted, care plan discussed, diagnoses discussed, prognosis discussed, patient is full code, patient acknowledges understanding and agree with care plan, +30 minutes. Disposition: HOME / SELF CARE / HOMELESS Final Discharge Diagnosis (Prints w/discharge instructions): Sepsis POA, BL foot wounds, ESRD requiring HD Time spent for discharge: 35 Core Measure Documentation - Palliative Care Palliative Care/ Comfort Measures: Not Applicable - Core Measures Any of the following diagnoses?: none Exam - Physical Exam Narrative exam: Physical Exam: VITAL SIGNS: Reviewed. GENERAL: The patient appears normally developed, Vital signs as documented. HEAD: No signs of head trauma. EYES: Pupils are equal. Extraocular motions intact. EARS: Hearing grossly intact. MOUTH: Oropharynx is normal. NECK: No adenopathy, no JVD. CHEST: Chest with clear breath sounds bilaterally. No wheezes, rales, or rhonchi. CARDIAC: Regular rate and rhythm. S1 and S2, without murmurs, gallops, or rubs. VASCULAR: No Edema. Peripheral pulses normal and equal in all extremities. ABDOMEN: Soft, non tender and non distended. No rebound or guarding, and no masses palpated. Bowel Sounds normal. MUSCULOSKELETAL: Good range of motion of all major joints. Extremities without clubbing, cyanosis or edema. NEUROLOGIC EXAM: Alert and oriented x 4. no focal sensory or strength deficits. PSYCHIATRIC: Mood normal. SKIN: BL foot wounds, wrapped. detail exam as documented in skin assessment - Constitutional Vitals: Temp Pulse Resp BP Pulse Ox 97.7 F 100 H 12 118/76 100 11/11/21 16:38 11/12/21 00:18 11/12/21 00:18 11/11/21 16:38 11/12/21 00:18 Plan Follow up with: PRIMARY CAREMD [Primary Care Provider] - 7 Days Prescriptions: amLODIPine 10 mg PO QDAY 30 Days #30 tablet
[2021-11-12] MEDS ORDERED: diphenhydrAMINE 25 MG CAP PO ONE (08:30)
[2021-11-12] MEDS ORDERED: HYDROcodone/ACETAMINOPHEN 5-325 MG TAB PO ONE (08:30)
[2021-11-12] MEDS ORDERED: VANCOMYCIN/NS 1 GM/250 ML 1 GM/250 ML BAG IV ONE (09:00)
[2021-11-12] MEDS: prednisoLONE ACETATE 1% OPHTH SUSP 5 ML OD SCH (09:31)
[2021-11-12] MEDS: amLODIPine 10 MG TAB PO SCH (09:31)
--- NOTE | 2021-11-12 11:08 | Progress Note ---
Assessment and Plan Cultures: 11/08/2021 blood culture: no growth A/P: 31-year-old male with diabetes mellitus type 2, hypertension, ESRD on HD was admitted with fever and chills going on for 2 to 3 days: #Fever, sepsis: Could be from infected HD catheter in left femoral region v/s bilateral feet wounds present for >1 month, does follow outpt with podiatry. Blood cultures are negative. #ESRD on HD: Renally adjust antibiotics. #Diabetes mellitus type 2, uncontrolled #Hypertension #Acute thrombocytopenia Recs: Declined MRI, remains afebrile. No leukocytosis. Negative blood cultures. Refused MRI. Has outpatient follow-up with podiatry, recommend continued follow-up with them. Okay for discharge from ID standpoint. Discussed with Dr. Rangel. Dick Pang MD, FACP, [facility] O: [phone] F: [phone] C: [phone] Subjective Date of service: 11/12/21 Principal diagnosis: SIRS, end-stage renal disease Interval history: No fever. About to go to dialysis. Declined MRI. No other complaints. He is somewhat sleepy. Objective - Exam Narrative Exam: Physical Exam: Constitutional: sleepy, can be awakened No acute distress Head, Ears, Nose: Normocephalic, atraumatic. External ears, nose normal Eyes: Conjunctivae/corneas clear. No icterus. No ptosis. Neck: Supple, no meningeal signs Cardiovascular: S1, S2 + Respiratory: Good air entry, clear to auscultation bilaterally GI: Soft, non-tender; bowel sounds normal. No peritoneal signs Musculoskeletal: b/l feet in dressings. L groin HD cath + Skin: No rash or abscess Hem/Lymphatic: No palpable cervical or supraclavicular nodes. No lymphangitis Psych: Mood ok. Affect normal Neurological: sleepy, easily awakened. No gross abnormality - Constitutional Vitals: Vital Signs Temp Pulse Resp BP Pulse Ox 98.3 F 101 H 20 113/58 97 11/12/21 04:49 11/12/21 04:49 11/12/21 09:40 11/12/21 09:38 11/12/21 09:40 Temperature -Last 24 Hours Temperature 98.3 F Temperature 98.5 F Temperature 97.7 F - Labs CBC & Chem 7: 11/10/21 07:43 11/11/21 04:18 Labs: Abnormal lab results 11/11/21 Range/Units 22:21 Phosphorus 8.20 H (2.5-4.5) mg/dL
[2021-11-12 17:37] VITALS: BP 141/86
[2021-11-12] MEDS: CEFEPIME/NS 1 GM/100 ML 1 GM/100 ML BAG IV SCH (18:29)
== END 2021-11-12 18:30 | disposition home or self-care (01) | DRG 314 ==
LOC: ED 13:56 → 3A 18:36
PROVIDERS: ADMIT Internal Medicine; ATTEND Internal Medicine
PROC: 5A1D70Z Performance of Urinary Filtration, Intermittent, Less than 6 Hours Per Day (ICD-10-PCS; principal; 2021-11-09)
PROC: 5A1D70Z Performance of Urinary Filtration, Intermittent, Less than 6 Hours Per Day (ICD-10-PCS; 2021-11-10)
PROC: 5A09357 Assistance with Respiratory Ventilation, Less than 24 Consecutive Hours, Continuous Positive Airway Pressure (ICD-10-PCS; 2021-11-11)
PROC: 5A1D70Z Performance of Urinary Filtration, Intermittent, Less than 6 Hours Per Day (ICD-10-PCS; 2021-11-12)
DX: T82.7XXA Infection and inflammatory reaction due to other cardiac and vascular devices, implants and grafts, initial encounter (principal); A41.9 Sepsis, unspecified organism; G93.41 Metabolic encephalopathy; N18.6 End stage renal disease; I13.2 Hypertensive heart and chronic kidney disease with heart failure and with stage 5 chronic kidney disease, or end stage renal disease; E11.22 Type 2 diabetes mellitus with diabetic chronic kidney disease; Z20.822 Contact with and (suspected) exposure to COVID-19; Z99.2 Dependence on renal dialysis; E11.65 Type 2 diabetes mellitus with hyperglycemia; D63.1 Anemia in chronic kidney disease; E87.5 Hyperkalemia; D69.6 Thrombocytopenia, unspecified; Y83.8 Other surgical procedures as the cause of abnormal reaction of the patient, or of later complication, without mention of misadventure at the time of the procedure; Y92.89 Other specified places as the place of occurrence of the external cause; Z83.3 Family history of diabetes mellitus; Z82.49 Family history of ischemic heart disease and other diseases of the circulatory system; Z82.3 Family history of stroke; Z90.49 Acquired absence of other specified parts of digestive tract; Z79.899 Other long term (current) drug therapy; Z79.84 Long term (current) use of oral hypoglycemic drugs
CPT/HCPCS: 36415; 71045; 78580; 80053; 80074; 80202; 82140; 82803; 82805; 82962; 83735; 84100; 84132; 85007; 85025; 85379; 86140; 87040; 93005; 94660; 94760; G0378; J3490; Q9967; A9540; J0692; J0696; J1815; J2270; J2310; J2405; J2543; J3010; J3370; J7040; U0003